=== PATIENT | male | born 1965 | race Asian ===

== ENCOUNTER → 2017-12-14 | Day surgery (SDC) | payer OTHER ==
[2017-09-23 11:31] VITALS: BMI 29.0
[2017-12-01 11:47] VITALS: BMI 29.0
[~2017-12-14] VITALS: Ht 188 cm; Wt 104.5 kg
[~2017-12-14] MED LIST: BUPR150T5 PO; CETI10TA84 PO; FENTANYL CITRATE INJ 50 MCG/1 ML 2 ML VIAL ONE; HYDR-3124 PO; HYDR-4079 PO; JUICE PLUS PO; LIDOCAINE HCL 2% 2 ML VIAL (20MG/ML) ONE; METH500T PO; METO25TA56 PO; MIDAZOLAM HCL 1 MG/ML 2ML VIAL ONE; MIRT15TA2 PO; MISCCAP80 PO; MULT-506 PO; PROPOFOL IV EMULSION 10 MG/ML 20 ML VIAL IV ONE; SODI325T9 PO; SODIUM CHLORIDE 0.9% 500ML 500 ML IV ONE; TRAV0.00 OPB; WLLSR/100 PO; ZNTT/150 PO
[2017-12-14 11:15] VITALS: TEMP 37.2
[2017-12-14 11:18] VITALS: Ht 188 cm; Wt 104.5 kg
--- NOTE | 2017-12-14 11:36 | Endo History and Physical ---
History & Physical Date of Service: Dec 14, 2017. Chief Complaint: screening Referring Physician: Dr. Ley History of Present Illness 52 yo male who presents for screening colonoscopy. Past Surgical History Hx Cardiac Surgery: No Hx Internal Defibrillator: No Hx Pacemaker: No Hx Abdominal Surgery: No Hx of Implantable Prosthesis: No Hx Post-Op Nausea and Vomiting: Yes (AFTER AN EGD IN THE PAST --> NO ISSUES SINCE) Hx Cancer Surgery: No Hx Thoracic Surgery: No Hx Orthopedic: Yes (RT TOENAIL REMOVAL) Hx Urinary Tract Surgery: No Family History Polyp, IBD Social History Smoking Status: Never Smoker Hx Substance Use: No Hx Alcohol Use: Yes (SOCIAL) Allergies Coded Allergies: Penicillins (Verified Allergy, Unknown, CONVULSIONS - HAPPENED A CHILD , 12/14/17) Gabapentin (Verified Adverse Reaction, Unknown, "LOOPINESS AND DIFFICULTY WITH RECALL", 12/14/17) Current Medications Reported Home Medications Medications Dose Route/Sig Max Daily Dose Days Date Category Dose Instructions Zyrtec (Cetirizine HCl) 10 Mg Tab 10 Mg PO HS 12/01/17 Reported Travatan Z (Travoprost) 0.004 % John 1 Drops OPB HS 09/23/17 Reported [Juice Plus] 1 Dose PO QAM 09/23/17 Reported Multivitamin (Multivitamins) Tab 1 Tab PO HS 09/23/17 Reported Probiotic (Probiotic Product) 1 Cap Cap 1 Cap PO HS 09/23/17 Reported [place] 10MG/325MG (Acetaminophen/Hydrocodone Bitart) Tab 1 Tab PO Q4H PRN 09/23/17 Reported PRN PAIN Wellbutrin Sr (Bupropion Hcl) 100 Mg Tabcr 100 Mg PO AFTERNOON 09/23/17 Reported Bupropion Hcl Xl (Bupropion Hcl) 150 Mg Tab 1 Tab PO QAM 09/23/17 Reported Robaxin (Methocarbamol) 500 Mg Tab 500 Mg PO HS 09/23/17 Reported Remeron Soltab (Mirtazapine) 15 Mg Soltab 15 Mg PO HS PRN 09/23/17 Reported IF DOES NOT TAKE HYDROXYZINE Atarax (Hydroxyzine Hcl) 25 Mg Tab 25 Mg PO HS 09/23/17 Reported Lopressor (Metoprolol Tartrate) 25 Mg Tab 0.5 Tab PO BID 09/23/17 Reported Sodium Bicarbonate (Sodium Bicarbonate (Antacid)) 325 Mg Tab 2 Tabs PO HS 09/23/17 Reported Zantac (Ranitidine HCl) 150 Mg Tab 150 Mg PO HS 09/23/17 Reported Vital Signs Weight (Kilograms): 104.55 Height (Feet): 6 Height (Inches): 2 Date Time Temp Pulse Resp B/P (MAP) Pulse Ox O2 Delivery O2 Flow Rate FiO2 12/14/17 11:15 37.2 76 16 141/79 (99) 98 Room Air Physical Exam General Appearance: WD/WN, no apparent distress Respiratory/Chest: Auscultation: breath sounds normal Cardiovascular: Heart Auscultation: RRR Abdomen: Bowel Sounds: normal Inspection & Palpation: soft, non-distended, no tenderness, guarding & rebound Assessment and Plan Assessment: 52 yo male who presents for screening colonoscopy. Plan: Proceed with colonoscopy.
--- NOTE | 2017-12-14 13:04 | GI REPORT ---
Procedure Date: 12/14/2017 12:31 PM Procedure: Colonoscopy Indications: Screening for colorectal malignant neoplasm Medicines: Monitored Anesthesia Care Complications: No immediate complications. Estimated Blood Loss: Estimated blood loss: none. Procedure: Pre-Anesthesia Assessment: - Prior to the procedure, a History and Physical was performed, and patient medications and allergies were reviewed. The patient's tolerance of previous anesthesia was also reviewed. The risks and benefits of the procedure and the sedation options and risks were discussed with the patient. All questions were answered, and informed consent was obtained. Prior Anticoagulants: The patient has taken no previous anticoagulant or antiplatelet agents. ASA Grade Assessment: III - A patient with severe systemic disease. After reviewing the risks and benefits, the patient was deemed in satisfactory condition to undergo the procedure. After I obtained informed consent, the scope was passed under direct vision. Throughout the procedure, the patient's blood pressure, pulse, and oxygen saturations were monitored continuously. The scope was introduced through the anus and advanced to the terminal ileum. The colonoscopy was performed without difficulty. The patient tolerated the procedure well. The quality of the bowel preparation was good. The terminal ileum, ileocecal valve, appendiceal orifice, and rectum were photographed. Findings: The perianal and digital rectal examinations were normal. A 10 mm polyp was found in the ascending colon. The polyp was sessile. The polyp was removed with a hot snare. Resection and retrieval were complete. To prevent bleeding after the polypectomy, one hemostatic clip was successfully placed (MR conditional). There was no bleeding at the end of the procedure. Non-bleeding internal hemorrhoids were found during retroflexion. The hemorrhoids were small. Impression: - One 10 mm polyp in the ascending colon, removed with a hot snare. Resected and retrieved. Clip (MR conditional) was placed. - Non-bleeding internal hemorrhoids. Recommendation: - Resume previous diet. - Continue present medications. - Repeat colonoscopy for surveillance based on pathology results. - Return to primary care physician as previously scheduled. Toribio Vu DO 12/14/2017 1:03:58 PM This report has been signed electronically. Note Initiated On: 12/14/2017 12:31 PM I attest to the content of the Intraoperative Record and orders documented therein, exceptions below
--- NOTE | 2017-12-14 13:08 | Discharge Instructions ---
Endoscopy Patient Instructions Date / Procedure(s) Performed Dec 14, 2017. Colonoscopy Allergy Information Coded Allergies: Penicillins (Verified Allergy, Unknown, CONVULSIONS - HAPPENED A CHILD , 12/14/17) Gabapentin (Verified Adverse Reaction, Unknown, "LOOPINESS AND DIFFICULTY WITH RECALL", 12/14/17) Discharge Date / Findings Dec 14, 2017. Colon polyp Internal hemorrhoids Medication Instructions OK to resume all medications today as prescribed Reported Home Medications Medications Dose Route/Sig Max Daily Dose Days Date Category Dose Instructions Zyrtec (Cetirizine HCl) 10 Mg Tab 10 Mg PO HS 12/01/17 Reported Travatan Z (Travoprost) 0.004 % John 1 Drops OPB HS 09/23/17 Reported [Juice Plus] 1 Dose PO QAM 09/23/17 Reported Multivitamin (Multivitamins) Tab 1 Tab PO HS 09/23/17 Reported Probiotic (Probiotic Product) 1 Cap Cap 1 Cap PO HS 09/23/17 Reported [place] 10MG/325MG (Acetaminophen/Hydrocodone Bitart) Tab 1 Tab PO Q4H PRN 09/23/17 Reported PRN PAIN Wellbutrin Sr (Bupropion Hcl) 100 Mg Tabcr 100 Mg PO AFTERNOON 09/23/17 Reported Bupropion Hcl Xl (Bupropion Hcl) 150 Mg Tab 1 Tab PO QAM 09/23/17 Reported Robaxin (Methocarbamol) 500 Mg Tab 500 Mg PO HS 09/23/17 Reported Remeron Soltab (Mirtazapine) 15 Mg Soltab 15 Mg PO HS PRN 09/23/17 Reported IF DOES NOT TAKE HYDROXYZINE Atarax (Hydroxyzine Hcl) 25 Mg Tab 25 Mg PO HS 09/23/17 Reported Lopressor (Metoprolol Tartrate) 25 Mg Tab 0.5 Tab PO BID 09/23/17 Reported Sodium Bicarbonate (Sodium Bicarbonate (Antacid)) 325 Mg Tab 2 Tabs PO HS 09/23/17 Reported Zantac (Ranitidine HCl) 150 Mg Tab 150 Mg PO HS 09/23/17 Reported Provider Instructions Activity Restrictions - No exercising or heavy lifting for 24 hours. - Do not drink alcohol the day of the procedure. - Do not drive a car or operate machinery until the day after the procedure. - Do not make any important decisions or sign important papers in 24 hours after the procedure. Following Day: - Return to full activity which may include returning to work/school. Diet Start your diet with liquids and light foods (jello, soup, juice, toast). Then eat your usual diet if not nauseated. Treatment For Common After Affects For mild abdominal pain, bloating, or excessive gas: - Rest - Eat lightly - Lie on right side Follow-Up Information Follow-up with Dr. Ley as scheduled Anesthesia Information What You Should Know You have had a procedure that required some medicine to reduce anxiety and discomfort. This treatment is called moderate sedation. After receiving the treatment, you may be sleepy, but you will be able to breathe on your own. The effects of the treatment may last for several hours. Follow these instructions along with Activity/Diet recommendations noted above: * Do NOT do anything where dizziness or clumsiness would be dangerous. * Rest quietly at home today, then you can be up and about tomorrow. * Have a responsible person stay with you the rest of today. * You may have had an I.V. today. If so, you may take the dressing off later today. Recommendations Call your doctor if: * Trouble breathing * Continuous vomiting for more than 24 hours * Temperature above 101 degrees * Severe abdominal pain or bloating * Pain not relieved by pain medicine ordered * There is increased drainage or redness from any incision * A large amount of rectal bleeding greater than 2-3 tablespoons. (If you had a polyp/s removed or have hemorrhoids, a small amount of blood - from the rectum is to be expected.) * You have any unanswered questions or concerns. IN THE EVENT OF A SERIOUS EMERGENCY, GO TO THE NEAREST EMERGENCY ROOM Your discharge instructions were prepared by provider Toribio Vu. Patient Instructions Signature Page Nasim Cary Patient (or Guardian) Signature/Date: I have read and understand the instructions given to me by my caregivers. Caregiver/RN/Doctor Signature/Date: The above-named patient and/or guardian has received patient instructions on this date. + Original Patient Signature Page (only) stays with chart. Please make copy for patient.
--- NOTE | 2017-12-14 13:27 | Anesthesiology Progress Note ---
Anesthesia Post Op Note Date & Time Dec 14, 2017 at 13:26 Vital Signs Pain Intensity: 0 Vital Signs Past 12 Hours Date Time Temp Pulse Resp B/P (MAP) Pulse Ox O2 Delivery O2 Flow Rate FiO2 12/14/17 13:19 62 16 145/93 (110) 97 Room Air 12/14/17 13:04 73 12 131/80 (97) 97 Room Air 12/14/17 11:15 37.2 76 16 141/79 (99) 98 Room Air Notes Mental Status: alert / awake / arousable, participated in evaluation Pt Amnestic to Procedure: Yes Nausea / Vomiting: adequately controlled Pain: adequately controlled Airway Patency, RR, SpO2: stable & adequate BP & HR: stable & adequate Hydration State: stable & adequate Anesthetic Complications: no major complications apparent
[2017-12-14 13:34] VITALS: BP 145/98; PULSE 62; O2SAT 97
== END | disposition home or self-care (01) ==
LOC: C.GI 10:26
PROVIDERS: ATTEND Internal Medicine
DX: Z12.11 Encounter for screening for malignant neoplasm of colon (principal); D12.2 Benign neoplasm of ascending colon; K21.9 Gastro-esophageal reflux disease without esophagitis; K44.9 Diaphragmatic hernia without obstruction or gangrene; K64.8 Other hemorrhoids; G47.33 Obstructive sleep apnea (adult) (pediatric); Z83.71 Family history of colonic polyps

== ENCOUNTER 2025-04-09 15:32 | Inpatient (IN) ==
[2025-04-09] MEDS: SODIUM CHLORIDE 0.9% 1,000 ML IV ONE (16:14)
[2025-04-09] MEDS: ONDANSETRON INJ 2 MG/ML 2 ML VIAL IV STA ×2 (16:15→19:58)
[2025-04-09 16:25] LABS: Basophils # (auto) 0.04 K/uL (0.00-0.20); Basophils % (auto) 0.3 %; Eosinophils # (auto) 2.45 K/uL (0.00-0.50); Eosinophils % (auto) 20.4 %; Hematocrit (blood only) 57.1 % (42.0-52.0); Immature Granulocytes # (auto) 0.06 K/uL (0.01-0.20); Immature Granulocytes % (auto) 0.5 %; Lymphocytes # (auto) 2.03 K/uL (1.20-3.40); Lymphocytes % (auto) 16.9 %; Monocytes # (auto) 0.73 K/uL (0.11-0.59); Monocytes % (auto) 6.1 %; Neutrophils # (auto) 6.68 K/uL (1.40-6.50); Neutrophils % (auto) 55.8 %; Platelet Count 351 K/uL (130-400); White Blood Count 11.99 K/ul (4.8-10.8)
[2025-04-09 16:28] LABS: Mean Corpuscular Hgb Conc 33.3 g/dL (32.0-36.0); RDW Coefficient of Variation 19.7 % (11.5-14.5); RDW Standard Deviation 41.9 fL (36.4-46.3); Red Blood Count 7.93 M/uL (4.70-6.10)
[2025-04-09 16:42] LABS: Albumin Level 3.8 gm/dl (3.4-5.0); BUN Creatinine Ratio 15.3 (10-20); Bilirubin Direct 0.1 mg/dl (0-0.2); Bilirubin,Total 0.7 mg/dl (0.2-1.0); Calcium 8.4 mg/dl (8.6-10.3); Creatinine Clr Calc Pharmacy 9.6 ml/min; Potassium 3.7 mmol/L (3.5-5.1)
--- NOTE | 2025-04-09 17:01 | Emergency Department Note ---
History of Present Illness General Chief complaint: Illness Stated complaint: E COLI RELAPSE, VOMITING AND DIARRHEA Time Seen by Provider: 04/09/25 15:45 History of Present Illness Maximum Pain Intensity: 10 Home Medications Medication Instructions Recorded Confirmed Type bupropion HCl 150 mg 24 hr tablet, 150 mg PO QAM ##0 09/23/17 04/02/25 History extended release hydrocodone 10 mg-acetaminophen 1 tab PO BID PRN Pain, 09/23/17 04/02/25 History 325 mg tablet Moderate-Severe ##0 methocarbamol 500 mg tablet 500 mg PO HS PRN Muscle Spasm ##0 09/23/17 04/02/25 History metoprolol tartrate 25 mg tablet 12.5 mg PO BID ##0 09/23/17 04/02/25 History ascorbic acid (vitamin C) 500 mg 1,000 mg PO DAILY 04/02/25 04/02/25 History tablet aspirin 81 mg tablet,delayed 81 mg PO DAILY 04/02/25 04/02/25 History release celecoxib 200 mg capsule (Celebrex) 200 mg PO BID PRN Pain 04/02/25 04/02/25 History coenzyme Q10 100 mg tablet 0 mg PO DAILY 04/02/25 04/02/25 History cyanocobalamin (vitamin B-12) 1,000 mcg PO DAILY 04/02/25 04/02/25 History 1,000 mcg tablet duloxetine 60 mg capsule,delayed 60 mg PO DAILY 04/02/25 04/02/25 History release empagliflozin 25 mg tablet 25 mg PO DAILY 04/02/25 04/02/25 History (Jardiance) ezetimibe 10 mg tablet (Zetia) 10 mg PO DAILY 04/02/25 04/02/25 History hydroxyzine HCl 50 mg tablet 100 mg PO BID PRN anxiety/sleep 04/02/25 04/02/25 History lidocaine 5 % topical patch 1 patch topical DAILY 04/02/25 04/02/25 History lysine 1,000 mg tablet 1,000 mg PO DAILY 04/02/25 04/02/25 History metformin 500 mg tablet,extended 500 mg PO DAILY 04/02/25 04/02/25 History release 24 hr methylphenidate HCl 27 mg 27 mg PO DAILY 04/02/25 04/02/25 History tablet,extended release 24 hr (Concerta) pantoprazole 20 mg tablet,delayed 20 mg PO BID 04/02/25 04/02/25 History release (Protonix) polyethylene glycol 3350 17 17 g PO BID PRN Constipation 04/02/25 04/02/25 History gram/dose oral powder (Miralax) pregabalin 300 mg capsule (Lyrica) 300 mg PO BID 04/02/25 04/02/25 History rosuvastatin 20 mg tablet (Crestor) 10 mg PO HS 04/02/25 04/02/25 History semaglutide 0.25 mg or 0.5 mg (2 0.5 mg subcut WK 04/02/25 04/02/25 History mg/3 mL) subcutaneous pen injector (Ozempic) sildenafil 100 mg tablet (Viagra) 50 mg PO UD PRN .ED 04/02/25 04/02/25 History testosterone 3 pump topical DAILY 04/02/25 04/02/25 History urea 20 % topical cream 1 applic topical DAILY PRN 04/02/25 04/02/25 History CALLUSING/FISSURING vitamins A,C,X-aihk-advupj 2,148 1 tab PO DAILY 04/02/25 04/02/25 History mcg-113 mg-45 mg-17.4 mg tablet (PreserVision AREDS) zinc gluconate 50 mg tablet 50 mg PO DAILY 04/02/25 04/02/25 History zonisamide 25 mg capsule 25 mg PO BID 04/02/25 04/02/25 History dicyclomine 20 mg tablet 20 mg PO QID #20 tabs 04/03/25 Rx ondansetron 4 mg disintegrating 4 mg PO Q6H PRN nausea and 04/03/25 Rx tablet vomiting #14 tabs sucralfate 100 mg/mL oral 10 ml PO QID #420 mL 04/03/25 Rx suspension (Carafate) Allergies Allergy/AdvReac Type Severity Reaction Status Date / Time Penicillins Allergy Unknown CONVULSIONS Verified 04/02/25 19:04 - HAPPENED A CHILD gabapentin AdvReac Unknown "LOOPINESS Verified 04/02/25 19:04 AND DIFFICULTY WITH RECALL" Past Med/Surg History Problem List Elevated hematocrit (Acute) Elevated hemoglobin (Acute) Dehydration (Acute) E. coli gastroenteritis (Acute) Idiopathic polyneuropathy Seizure-like activity Social History Smoking Status: Never smoker Feels Safe at Home: Yes Physical Exam 2 Vital Signs: Vital Signs - 24 hr 04/09/25 15:38 04/09/25 15:46 04/09/25 16:09 Temperature 37.0 C Temperature Source Temporal Artery Sc an Pulse Rate 90 104 H Respiratory Rate 16 Respiratory Effort / Characteristics Non-Labored Sponta neous Respiratory Depth Normal Respiratory Patter n Regular Blood Pressure 132/80 Blood Pressure [place] n 97 Pulse Oximetry 98 Oxygen Delivery Me thod Room Air Room Air Sepsis Recent Feve r Within 48 Hours No Sepsis New/Unexpla ined Change in Men kahlil Status No Sepsis Action Take n by Nursing No Action Required Course Administered Medications Discontinued Medications Sodium Chloride (Nss) 1,000 mls @ 999 mls/hr IV .Q1H1M ONE Stop: 04/09/25 16:46 Last Admin: 04/09/25 16:14 Dose: 999 mls/hr Documented By: SHAHEEN Ondansetron HCl (Ondansetron Inj 2 Mg/Ml 2 Ml Vial) 4 mg IV NOW STA Stop: 04/09/25 15:47 Last Admin: 04/09/25 16:15 Dose: 4 mg Documented By: SHAHEEN Medical Decision Making Laboratory Data 04/09/25 16:09 04/09/25 16:09 Lab Results 04/09/25 Range/Units 16:09 WBC 11.99 H (4.8-10.8) K/ul RBC 7.93 H (4.70-6.10) M/uL Hgb 19.0 H (14.0-18.0) g/dl Hct 57.1 H (42.0-52.0) % MCV 72.0 L (80.0-100.0) fL MCH 24.0 L (25.0-34.0) pg MCHC 33.3 (32.0-36.0) g/dL RDW Std Deviation 41.9 (36.4-46.3) fL RDW Coeff of Nicki 19.7 H (11.5-14.5) % Plt Count 351 (130-400) K/uL MPV 11.0 (9.4-12.4) fL Immature Gran % (Auto) 0.5 % Neut % (Auto) 55.8 % Lymph % (Auto) 16.9 % [place] % (Auto) 6.1 % Eos % (Auto) 20.4 % Baso % (Auto) 0.3 % Neut # (Auto) 6.68 H (1.40-6.50) K/uL Lymph # (Auto) 2.03 (1.20-3.40) K/uL [place] # (Auto) 0.73 H (0.11-0.59) K/uL Eos # (Auto) 2.45 H (0.00-0.50) K/uL Baso # (Auto) 0.04 (0.00-0.20) K/uL Immature Gran # (Auto) 0.06 (0.01-0.20) K/uL Sodium 142 (136-145) mmol/L Potassium 3.7 (3.5-5.1) mmol/L Chloride 108 H (98-107) mmol/L Carbon Dioxide 23 (21-32) mmol/L Anion Gap 11 (3-11) BUN 15 (6-23) mg/dl Creatinine 0.98 (0.6-1.4) mg/dl Est Cr Clr Drug Dosing 9.6 ml/min eGFR 88.83 BUN/Creatinine Ratio 15.3 (10-20) Glucose 154 H (70-99(Fasting)) mg/dl Calcium 8.4 L (8.6-10.3) mg/dl Total Bilirubin 0.7 (0.2-1.0) mg/dl Direct Bilirubin 0.1 (0-0.2) mg/dl AST 21 (13-39) U/L ALT 20 (7-52) U/L Alkaline Phosphatase 64 (34-104) U/L Total Protein 7.0 (6.0-8.3) gm/dl Albumin 3.8 (3.4-5.0) gm/dl Lipase 21 (11-82) U/L Discharge Plan Visit Data Chief Complaint: Illness Stated Complaint: E COLI RELAPSE, VOMITING AND DIARRHEA ED Provider: Ángel Perez Forms Stand Alone Forms: [facility] Prescriptions Prescriptions: No Action methocarbamol 500 mg Tablet 500 mg PO HS PRN (Reason: Muscle Spasm) Qty: 0 hydrocodone-acetaminophen [[place]] 10-325 mg Tablet 1 tab PO BID PRN (Reason: Pain, Moderate-Severe) Qty: 0 Patient Comments: PRN PAIN bupropion HCl 150 mg Tablet Extended Release 24 Hr 150 mg PO QAM Qty: 0 metoprolol tartrate 25 mg Tablet 12.5 mg PO BID Qty: 0 celecoxib [Celebrex] 200 mg Capsule 200 mg PO BID PRN (Reason: Pain) urea 20 % Cream 1 applic TOPICAL DAILY PRN (Reason: CALLUSING/FISSURING) cyanocobalamin (vitamin B-12) 1,000 mcg Tablet 1,000 mcg PO DAILY lysine [L-Lysine] 1,000 mg Tablet 1,000 mg PO DAILY hydroxyzine HCl [Atarax] 50 mg Tablet 100 mg PO BID PRN (Reason: anxiety/sleep) aspirin 81 mg Tablet,Delayed Release (Dr/Ec) 81 mg PO DAILY sildenafil [Viagra] 100 mg Tablet 50 mg PO UD PRN (Reason: .ED) Rx Instructions: administer 30 minutes to 4 hours before activity pantoprazole [Protonix] 20 mg Tablet,Delayed Release (Dr/Ec) 20 mg PO BID ascorbic acid (vitamin C) 500 mg Tablet 1,000 mg PO DAILY lidocaine 5 % Adhesive Patch,Medicated 1 patch TOPICAL DAILY Rx Instructions: leave on most painful area for up to 12 hrs zinc gluconate 50 mg Tablet 50 mg PO DAILY polyethylene glycol 3350 [Miralax] 17 gram/dose Powder 17 g PO BID PRN (Reason: Constipation) metformin 500 mg Tablet Extended Release 24 Hr 500 mg PO DAILY methylphenidate HCl [Concerta] 27 mg Tablet Extended Release 24hr 27 mg PO DAILY ezetimibe [Zetia] 10 mg Tablet 10 mg PO DAILY rosuvastatin [Crestor] 20 mg Tablet 10 mg PO HS zonisamide 25 mg Capsule 25 mg PO BID duloxetine 60 mg Capsule,Delayed Release(Dr/Ec) 60 mg PO DAILY pregabalin [Lyrica] 300 mg Capsule 300 mg PO BID PreserVision AREDS 2,148 mcg-113 mg-45 mg-17.4mg Tablet 1 tab PO DAILY testosterone 20.25 mg/1.25 gram (1.62 %) Gel In Metered-Dose Pump 3 pump TOPICAL DAILY Rx Instructions: apply 1 pump amount over max area of EACH upper arm and shoulder coenzyme Q10 100 mg Tablet 0 mg PO DAILY Rx Instructions: strength not listed [facility] Jardiance 25 mg Tablet 25 mg PO DAILY Ozempic 0.25 mg or 0.5 mg (2 mg/3 mL) Pen Injector 0.5 mg SUBCUT WK sucralfate [Carafate] 100 mg/mL suspension 10 ml PO QID Qty: 420 0RF Rx Instructions: swish in mouth and swallow; use after food/drink: May substitute tablets as a slurry. dicyclomine 20 mg tablet 20 mg PO QID Qty: 20 0RF ondansetron 4 mg tablet,disintegrating 4 mg PO Q6H PRN (Reason: nausea and vomiting) Qty: 14 0RF Referrals Referrals: Clifford Avila MD [Primary Care Provider] -
--- NOTE | 2025-04-09 17:04 | Emergency Department Note ---
History of Present Illness General Chief complaint: Illness Stated complaint: E COLI RELAPSE, VOMITING AND DIARRHEA Time Seen by Provider: 04/09/25 15:45 History of Present Illness Provider complaint: Diarrhea Maximum Pain Intensity: 10 59-year-old male presents emergency department for diarrhea. Patient reports he was recently seen in the emergency department a week ago for diarrhea after eating a meatball sub-. Patient reports he was diagnosed with an E. coli infection. Patient states he was started on azithromycin after his ER visit. Patient reports his symptoms got better on Wednesday. He reports he finished the antibiotics 2 days ago. He reports Wednesday started having diarrhea again. Patient also reports nausea and vomiting. He reports no fevers but does report chills. Patient reports bloody stools. Patient reports blood streaking in his vomit also. Home Medications Medication Instructions Recorded Confirmed Type bupropion HCl 150 mg 24 hr tablet, 150 mg PO QAM ##0 09/23/17 04/09/25 History extended release hydrocodone 10 mg-acetaminophen 1 tab PO BID PRN Pain, 09/23/17 04/09/25 History 325 mg tablet Moderate-Severe ##0 methocarbamol 500 mg tablet 500 mg PO HS PRN Muscle Spasm ##0 09/23/17 04/09/25 History metoprolol tartrate 25 mg tablet 12.5 mg PO BID ##0 09/23/17 04/09/25 History ascorbic acid (vitamin C) 500 mg 1,000 mg PO DAILY 04/02/25 04/09/25 History tablet aspirin 81 mg tablet,delayed 81 mg PO DAILY 04/02/25 04/09/25 History release celecoxib 200 mg capsule (Celebrex) 200 mg PO BID PRN Pain 04/02/25 04/09/25 History coenzyme Q10 100 mg tablet 0 mg PO DAILY 04/02/25 04/09/25 History cyanocobalamin (vitamin B-12) 1,000 mcg PO DAILY 04/02/25 04/09/25 History 1,000 mcg tablet duloxetine 60 mg capsule,delayed 60 mg PO DAILY 04/02/25 04/09/25 History release empagliflozin 25 mg tablet 25 mg PO DAILY 04/02/25 04/09/25 History (Jardiance) ezetimibe 10 mg tablet (Zetia) 10 mg PO DAILY 04/02/25 04/09/25 History hydroxyzine HCl 50 mg tablet 100 mg PO BID PRN anxiety/sleep 04/02/25 04/09/25 History lidocaine 5 % topical patch 1 patch topical DAILY 04/02/25 04/09/25 History lysine 1,000 mg tablet 1,000 mg PO DAILY 04/02/25 04/09/25 History metformin 500 mg tablet,extended 500 mg PO DAILY 04/02/25 04/09/25 History release 24 hr methylphenidate HCl 27 mg 27 mg PO DAILY 04/02/25 04/09/25 History tablet,extended release 24 hr (Concerta) pantoprazole 20 mg tablet,delayed 20 mg PO BID 04/02/25 04/09/25 History release (Protonix) polyethylene glycol 3350 17 17 g PO BID PRN Constipation 04/02/25 04/09/25 History gram/dose oral powder (Miralax) pregabalin 300 mg capsule (Lyrica) 300 mg PO BID 04/02/25 04/09/25 History rosuvastatin 20 mg tablet (Crestor) 10 mg PO HS 04/02/25 04/09/25 History semaglutide 0.25 mg or 0.5 mg (2 0.5 mg subcut WK 04/02/25 04/09/25 History mg/3 mL) subcutaneous pen injector (Ozempic) sildenafil 100 mg tablet (Viagra) 50 mg PO UD PRN .ED 04/02/25 04/09/25 History testosterone 3 pump topical DAILY 04/02/25 04/09/25 History urea 20 % topical cream 1 applic topical DAILY PRN 04/02/25 04/09/25 History CALLUSING/FISSURING vitamins A,C,Q-hcek-okjvvp 2,148 1 tab PO DAILY 04/02/25 04/09/25 History mcg-113 mg-45 mg-17.4 mg tablet (PreserVision AREDS) zinc gluconate 50 mg tablet 50 mg PO DAILY 04/02/25 04/09/25 History zonisamide 25 mg capsule 25 mg PO BID 04/02/25 04/09/25 History dicyclomine 20 mg tablet 20 mg PO QID #20 tabs 04/03/25 04/09/25 Rx ondansetron 4 mg disintegrating 4 mg PO Q6H PRN nausea and 05/06/25 05/12/25 Rx tablet vomiting #14 tabs sucralfate 100 mg/mL oral 10 ml PO QID #420 mL 04/03/25 04/09/25 Rx suspension (Carafate) Allergies Allergy/AdvReac Type Severity Reaction Status Date / Time Penicillins Allergy Unknown CONVULSIONS Verified 04/02/25 19:04 - HAPPENED A CHILD gabapentin AdvReac Unknown "LOOPINESS Verified 04/02/25 19:04 AND DIFFICULTY WITH RECALL" Past Med/Surg History Problem List (Updated 04/09/25 @ 20:16 by Jacob Caballero DO) Depression Hematochezia GERD (gastroesophageal reflux disease) Hyperlipidemia associated with type 2 diabetes mellitus Diabetes 1.5, managed as type 2 Nausea & vomiting Elevated hemoglobin (Acute) Dehydration (Acute) Seizure-like activity Medical History (Updated 04/09/25 @ 20:16 by Jacob Caballero DO) Elevated hematocrit E. coli gastroenteritis Idiopathic polyneuropathy Social History Smoking Status: Never smoker Feels Safe at Home: Yes Physical Exam Vital Signs Vital Signs - 24 hr 04/09/25 15:38 04/09/25 15:46 04/09/25 16:09 Temperature 37.0 C Temperature Source Temporal Artery Scan Pulse Rate 90 104 H Pulse Rate [Apical] Respiratory Rate 16 Respiratory Effort / Characteristics Non-Labored Spontaneous Respiratory Depth Normal Respiratory Pattern Regular Blood Pressure 132/80 Blood Pressure [Right Arm] Blood Pressure Mean 97 Blood Pressure Mean [Right Arm] Pulse Oximetry 98 Oxygen Delivery Method Room Air Room Air Sepsis Recent Fever Within 48 Hours No Sepsis New/Unexplained Change in Mental Status No Sepsis Action Taken by Nursing No Action Required 04/09/25 18:00 04/09/25 19:43 04/09/25 20:10 Temperature Temperature Source Pulse Rate 106 H Pulse Rate [Apical] 104 H 122 H Respiratory Rate 18 23 Respiratory Effort / Characteristics Respiratory Depth Respiratory Pattern Blood Pressure Blood Pressure [Right Arm] 127/96 136/117 H Blood Pressure Mean Blood Pressure Mean [Right Arm] 106 123 Pulse Oximetry 97 96 Oxygen Delivery Method Room Air Room Air Sepsis Recent Fever Within 48 Hours Sepsis New/Unexplained Change in Mental Status Sepsis Action Taken by Nursing Physical Exam GENERAL: oriented to person, place, and time. appears well-developed and well- nourished. She does not appear distressed. HENT: Exam performed. -Head: Normocephalic and atraumatic. -Right Ear: External ear normal. No mastoid erythema -Left Ear: External ear normal. No mastoid erythema -Mouth/Throat: The oropharynx is clear and moist. No trismus in the jaw. No dental abscesses or uvula swelling. No oropharyngeal exudate or tonsillar abscesses. EYES: Conjunctivae and EOM are normal.Right eye exhibits no discharge. Left eye exhibits no discharge. No scleral icterus. NECK: Normal range of motion. Neck supple. No JVD present. No tracheal deviation and normal range of motion present. CV: Tachycardic rate, regular rhythm, normal heart sounds and intact distal pulses. There is no peripheral edema. Palpable radial pulses bue. PULM/CHEST: Effort normal and breath sounds normal. No respiratory distress. No stridor. no wheezes.no rales. -Chest Wall: no tenderness to palpation ABD: The abdomen is soft. Bowel sounds are normal. no distension. No mass is present. There is diffuse tenderness to palpation. There is no rebound, no guarding. MUSC/SKEL: Normal range of motion. There is no peripheral edema, tenderness or deformity. NEURO: Motor and sensation grossly intact. SKIN: Skin is warm and dry. not diaphoretic. PSYCH: normal mood and affect. Behavior is normal. Judgment and thought content normal. Course Course 154: The patient was evaluated in room A2. A complete history and physical exam was performed Cardiac monitoring: An order was placed for continuous cardiac monitoring. The monitor shows a rate of 100 with sinus rhythm interpreted by me 2000: Patient remains tachycardic. Labs are unremarkable. CT imaging shows several fluid-filled bowel loops compatible with enteritis/diarrheal illness. On reassessment patient still having nausea and vomiting and diarrhea. Stool cultures are pending. Patient will be admitted and continued on Protonix drip given he was vomiting blood and having bloody stools. [facility] Patient's stool culture and C. difficile are negative. Administered Medications Pantoprazole Sodium 40 mg/ (Dextrose) 100 mls @ 20 mls/hr IV Q5H KEISHA Stop: 05/09/25 17:14 Last Admin: 04/09/25 18:13 Dose: 8 mg/hr, 20 mls/hr Documented By: SHAHEEN Discontinued Medications Sodium Chloride (Nss) 1,000 mls @ 999 mls/hr IV .Q1H1M ONE Stop: 04/09/25 16:46 Last Infusion: 04/09/25 17:18 Dose: Infused Documented By: Admin: 04/09/25 16:14 Dose: 999 mls/hr Documented By: SHAHEEN Pantoprazole Sodium 80 mg/ (Dextrose) 120 mls @ 480 mls/hr IV NOW ONE Stop: 04/09/25 17:13 Last Infusion: 04/09/25 17:42 Dose: Infused Documented By: Admin: 04/09/25 17:27 Dose: 480 mls/hr Documented By: SHAHEEN Ioversol (Optiray 320 100ml) 93 ml IV ONCE ONE Stop: 04/09/25 17:51 Last Admin: 04/09/25 17:51 Dose: 93 ml Documented By: OMAR Morphine Sulfate (Morphine Sulfate 4 Mg/Ml 1 Ml Carp\\Vial) 4 mg IV NOW STA Stop: 04/09/25 19:34 Last Admin: 04/09/25 19:43 Dose: 4 mg Documented By: SHAHEEN Ondansetron HCl (Ondansetron Inj 2 Mg/Ml 2 Ml Vial) 4 mg IV NOW STA Stop: 04/09/25 15:47 Last Admin: 04/09/25 16:15 Dose: 4 mg Documented By: SHAHEEN Ondansetron HCl (Ondansetron Inj 2 Mg/Ml 2 Ml Vial) 4 mg IV NOW STA Stop: 04/09/25 19:54 Last Admin: 04/09/25 19:58 Dose: 4 mg Documented By: SHAHEEN Pantoprazole Sodium (Pantoprazole Bolus/Drip) 1 each IV NOW STA Stop: 04/09/25 17:00 Last Admin: 04/09/25 17:29 Dose: 1 each Documented By: SHAHEEN Medical Decision Making Medical Records Attestation: I reviewed the patient's medical records. External medical records reviewed. Patient was seen in the emergency department on April 02, 2025 in the emergency department. At that time he had a CT of his chest abdomen and pelvis which was essentially unremarkable. Patient's labs showed a white blood cell count of 13.16 hemoglobin 19.3 BUN/creatinine are unremarkable. Patient's stool culture detected EHEC. Patient was discharged with prescription azithromycin. Laboratory Data Attestation: I reviewed the patient's lab results. 04/09/25 16:09 04/09/25 16:09 Lab Results 04/09/25 04/09/25 04/09/25 Range/Units 16:09 17:25 19:07 WBC 11.99 H (4.8-10.8) K/ul RBC 7.93 H (4.70-6.10) M/uL Hgb 19.0 H (14.0-18.0) g/dl Hct 57.1 H (42.0-52.0) % MCV 72.0 L (80.0-100.0) fL MCH 24.0 L (25.0-34.0) pg MCHC 33.3 (32.0-36.0) g/dL RDW Std Deviation 41.9 (36.4-46.3) fL RDW Coeff of Nicki 19.7 H (11.5-14.5) % Plt Count 351 (130-400) K/uL MPV 11.0 (9.4-12.4) fL Immature Gran % (Auto) 0.5 % Neut % (Auto) 55.8 % Lymph % (Auto) 16.9 % Parmer % (Auto) 6.1 % Eos % (Auto) 20.4 % Baso % (Auto) 0.3 % Neut # (Auto) 6.68 H (1.40-6.50) K/uL Lymph # (Auto) 2.03 (1.20-3.40) K/uL [place]mer # (Auto) 0.73 H (0.11-0.59) K/uL Eos # (Auto) 2.45 H (0.00-0.50) K/uL Baso # (Auto) 0.04 (0.00-0.20) K/uL Immature Gran # (Auto) 0.06 (0.01-0.20) K/uL Sodium 142 (136-145) mmol/L Potassium 3.7 (3.5-5.1) mmol/L Chloride 108 H (98-107) mmol/L Carbon Dioxide 23 (21-32) mmol/L Anion Gap 11 (3-11) BUN 15 (6-23) mg/dl Creatinine 0.98 (0.6-1.4) mg/dl Est Cr Clr Drug Dosing 9.6 ml/min eGFR 88.83 BUN/Creatinine Ratio 15.3 (10-20) Glucose 154 H (70-99(Fasting)) mg/dl Calcium 8.4 L (8.6-10.3) mg/dl Total Bilirubin 0.7 (0.2-1.0) mg/dl Direct Bilirubin 0.1 (0-0.2) mg/dl AST 21 (13-39) U/L ALT 20 (7-52) U/L Alkaline Phosphatase 64 (34-104) U/L Total Protein 7.0 (6.0-8.3) gm/dl Albumin 3.8 (3.4-5.0) gm/dl Lipase 21 (11-82) U/L Urine Color Yellow Urine Appearance Clear (Clear) Urine pH 6.5 (4.5-7.5) Ur Specific [place] 1.039 H (1.000-1.030) Urine Protein Trace H (Negative) Urine Glucose (UA) 3+ H (Negative) Urine Ketones 3+ H (Negative) Urine Blood Negative (Negative) Urine Nitrite Negative (Negative) Urine Bilirubin Negative (Negative) Urine Urobilinogen Negative (Negative) Ur Leukocyte Esterase Negative (Negative) Urine WBC (Auto) 0-5 (0-5) /hpf Urine RBC (Auto) 0-2 (0-2) /hpf U Hyaline Cast (Auto) 0-2 (0-2) /lpf U Epithel Cells (Auto) 0-2 (0-2) /hpf Urine Bacteria (Auto) None Seen (None Seen) Stool Occult Bld Scrn (Negative) Stl C. cayetanensis PCR Not Detected (NotDetected) Stool Rotavirus A PCR Not Detected (NotDetected) Stl Adenov F 40/41 PCR Not Detected (NotDetected) Stool Astrovirus (PCR) Not Detected (NotDetected) Stool Campylobacter PCR Not Detected (NotDetected) Stl C. diff Tox B Gene Negative Cdiff Gene (Neg) Stool Cryptosporidium PCR Not Detected (NotDetected) Stl E.coli Shiga Tox PCR Not Detected (NotDetected) Stl Enterotoxigenic E PCR Not Detected (NotDetected) Stool EPEC (PCR) Not Detected (NotDetected) Stool EAEC (PCR) Not Detected (NotDetected) Stl E. histolytica PCR Not Detected (NotDetected) Stool Giardia Lamblia PCR Not Detected (NotDetected) Stool Salmonella PCR Not Detected (NotDetected) Stool Sapovirus (PCR) Not Detected (NotDetected) Stl P. shigelloides PCR Not Detected (NotDetected) Stl Shigella/EIEC PCR Not Detected (NotDetected) St Y.enterocolitica PCR Not Detected (NotDetected) Stool Vibrio (PCR) Not Detected (NotDetected) Stl Vibrio cholerae PCR Not Detected (NotDetected) Stl Norovirus GI/GII PCR Not Detected (NotDetected) 04/09/25 Range/Units 19:30 WBC (4.8-10.8) K/ul RBC (4.70-6.10) M/uL Hgb (14.0-18.0) g/dl Hct (42.0-52.0) % MCV (80.0-100.0) fL MCH (25.0-34.0) pg MCHC (32.0-36.0) g/dL RDW Std Deviation (36.4-46.3) fL RDW Coeff of Nicki (11.5-14.5) % Plt Count (130-400) K/uL MPV (9.4-12.4) fL Immature Gran % (Auto) % Neut % (Auto) % Lymph % (Auto) % Parmer % (Auto) % Eos % (Auto) % Baso % (Auto) % Neut # (Auto) (1.40-6.50) K/uL Lymph # (Auto) (1.20-3.40) K/uL Parmer # (Auto) (0.11-0.59) K/uL Eos # (Auto) (0.00-0.50) K/uL Baso # (Auto) (0.00-0.20) K/uL Immature Gran # (Auto) (0.01-0.20) K/uL Sodium (136-145) mmol/L Potassium (3.5-5.1) mmol/L Chloride (98-107) mmol/L Carbon Dioxide (21-32) mmol/L Anion Gap (3-11) BUN (6-23) mg/dl Creatinine (0.6-1.4) mg/dl Est Cr Clr Drug Dosing ml/min eGFR BUN/Creatinine Ratio (10-20) Glucose (70-99(Fasting)) mg/dl Calcium (8.6-10.3) mg/dl Total Bilirubin (0.2-1.0) mg/dl Direct Bilirubin (0-0.2) mg/dl AST (13-39) U/L ALT (7-52) U/L Alkaline Phosphatase (34-104) U/L Total Protein (6.0-8.3) gm/dl Albumin (3.4-5.0) gm/dl Lipase (11-82) U/L Urine Color Urine Appearance (Clear) Urine pH (4.5-7.5) Ur Specific [place] (1.000-1.030) Urine Protein (Negative) Urine Glucose (UA) (Negative) Urine Ketones (Negative) Urine Blood (Negative) Urine Nitrite (Negative) Urine Bilirubin (Negative) Urine Urobilinogen (Negative) Ur Leukocyte Esterase (Negative) Urine WBC (Auto) (0-5) /hpf Urine RBC (Auto) (0-2) /hpf U Hyaline Cast (Auto) (0-2) /lpf U Epithel Cells (Auto) (0-2) /hpf Urine Bacteria (Auto) (None Seen) Stool Occult Bld Scrn Positive A (Negative) Stl C. cayetanensis PCR (NotDetected) Stool Rotavirus A PCR (NotDetected) Stl Adenov F 40/41 PCR (NotDetected) Stool Astrovirus (PCR) (NotDetected) Stool Campylobacter PCR (NotDetected) Stl C. diff Tox B Gene (Neg) Stool Cryptosporidium PCR (NotDetected) Stl E.coli Shiga Tox PCR (NotDetected) Stl Enterotoxigenic E PCR (NotDetected) Stool EPEC (PCR) (NotDetected) Stool EAEC (PCR) (NotDetected) Stl E. histolytica PCR (NotDetected) Stool Giardia Lamblia PCR (NotDetected) Stool Salmonella PCR (NotDetected) Stool Sapovirus (PCR) (NotDetected) Stl P. shigelloides PCR (NotDetected) Stl Shigella/EIEC PCR (NotDetected) St Y.enterocolitica PCR (NotDetected) Stool Vibrio (PCR) (NotDetected) Stl Vibrio cholerae PCR (NotDetected) Stl Norovirus GI/GII PCR (NotDetected) Imaging Data Radiologist's Impression: Abdomen/Pelvis CT 04/09/25 16:00 EXAMINATION: CT of the abdomen and pelvis performed after the administration of IV contrast TECHNIQUE: Helical CT images from the lung bases through the symphysis pubis were obtained with contrast. Coronal and sagittal reformatted images were generated at a workstation for further assessment. Dose reduction techniques were achieved by using automatic exposure control and/or adjustment of mA and/or kV according to patient size and/or use of iterative reconstruction technique. COMPARISON: April 02, 2025 HISTORY: Abdominal pain FINDINGS: Lower chest: No consolidation. No pleural effusion or pneumothorax. Liver: No suspicious liver lesions. Portal veins appear patent. Gallbladder: No gallstones. No evidence of acute cholecystitis. Spleen: Normal size. Pancreas: No suspicious pancreatic lesions. The pancreatic duct is not dilated. Adrenal glands: No adrenal nodules. Kidneys: No hydronephrosis or obstructing renal stones. Focal scarring at the mid left kidney. Bladder / Pelvic organs: Unremarkable. Bowel: No bowel obstruction. No abnormal bowel wall thickening. The appendix is unremarkable. Extensive fluid filling throughout the nondilated large bowel. Several nondilated loops of small bowel distally are fluid-filled. Lymph nodes: No retroperitoneal, mesenteric, or pelvic lymphadenopathy. Peritoneum / Retroperitoneum: No free fluid or air within the abdomen. Vessels: No infrarenal aortic aneurysm. Bones and soft tissues: No suspicious lesion in the bones. IMPRESSION: Several fluid-filled loops of small bowel, and fluid filling of the large bowel compatible with enteritis and diarrheal illness. No obstruction. Electronically signed by Adalid Lehman 04-09-2025 6:48 PM ECG Data Attestation: I personally reviewed and interpreted this ECG as follows: Rate (beats per minute): 109 Rhythm: + sinus tachycardia ECG Intervals/blocks: + Normal QRS, + Normal ME and + Normal QT-c ECG ST segments: + Normal ST segments MDM Narrative 1545: The patient was evaluated in room A2. A complete history and physical exam was performed Cardiac monitoring: An order was placed for continuous cardiac monitoring. The monitor shows a rate of 100 with sinus rhythm interpreted by me 2000: Patient remains tachycardic. Labs are unremarkable. CT imaging shows several fluid-filled bowel loops compatible with enteritis/diarrheal illness. On reassessment patient still having nausea and vomiting and diarrhea. Stool cultures are pending. Patient will be admitted and continued on Protonix drip given he was vomiting blood and having bloody stools. [facility]: Patient's stool culture and C. difficile are negative. Impression & Plan GI bleed, Nausea vomiting and diarrhea Discharge Plan Visit Data Chief Complaint: Illness Stated Complaint: E COLI RELAPSE, VOMITING AND DIARRHEA ED Provider: Ángel Perez Discharge Problem: GI bleed, Nausea vomiting and diarrhea Patient Disposition: Admitted As Inpatient Condition: Fair Forms Stand Alone Forms: [facility] Prescriptions Prescriptions: No Action methocarbamol 500 mg Tablet 500 mg PO HS PRN (Reason: Muscle Spasm) Qty: 0 hydrocodone-acetaminophen [[place]] 10-325 mg Tablet 1 tab PO BID PRN (Reason: Pain, Moderate-Severe) Qty: 0 Patient Comments: PRN PAIN bupropion HCl 150 mg Tablet Extended Release 24 Hr 150 mg PO QAM Qty: 0 metoprolol tartrate 25 mg Tablet 12.5 mg PO BID Qty: 0 celecoxib [Celebrex] 200 mg Capsule 200 mg PO BID PRN (Reason: Pain) urea 20 % Cream 1 applic TOPICAL DAILY PRN (Reason: CALLUSING/FISSURING) cyanocobalamin (vitamin B-12) 1,000 mcg Tablet 1,000 mcg PO DAILY lysine [L-Lysine] 1,000 mg Tablet 1,000 mg PO DAILY hydroxyzine HCl [Atarax] 50 mg Tablet 100 mg PO BID PRN (Reason: anxiety/sleep) aspirin 81 mg Tablet,Delayed Release (Dr/Ec) 81 mg PO DAILY sildenafil [Viagra] 100 mg Tablet 50 mg PO UD PRN (Reason: .ED) Rx Instructions: administer 30 minutes to 4 hours before activity pantoprazole [Protonix] 20 mg Tablet,Delayed Release (Dr/Ec) 20 mg PO BID ascorbic acid (vitamin C) 500 mg Tablet 1,000 mg PO DAILY lidocaine 5 % Adhesive Patch,Medicated 1 patch TOPICAL DAILY Rx Instructions: leave on most painful area for up to 12 hrs zinc gluconate 50 mg Tablet 50 mg PO DAILY polyethylene glycol 3350 [Miralax] 17 gram/dose Powder 17 g PO BID PRN (Reason: Constipation) metformin 500 mg Tablet Extended Release 24 Hr 500 mg PO DAILY methylphenidate HCl [Concerta] 27 mg Tablet Extended Release 24hr 27 mg PO DAILY ezetimibe [Zetia] 10 mg Tablet 10 mg PO DAILY rosuvastatin [Crestor] 20 mg Tablet 10 mg PO HS zonisamide 25 mg Capsule 25 mg PO BID duloxetine 60 mg Capsule,Delayed Release(Dr/Ec) 60 mg PO DAILY pregabalin [Lyrica] 300 mg Capsule 300 mg PO BID PreserVision AREDS 2,148 mcg-113 mg-45 mg-17.4mg Tablet 1 tab PO DAILY testosterone 20.25 mg/1.25 gram (1.62 %) Gel In Metered-Dose Pump 3 pump TOPICAL DAILY Rx Instructions: apply 1 pump amount over max area of EACH upper arm and shoulder coenzyme Q10 100 mg Tablet 0 mg PO DAILY Rx Instructions: strength not listed [facility] Jardiance 25 mg Tablet 25 mg PO DAILY Ozempic 0.25 mg or 0.5 mg (2 mg/3 mL) Pen Injector 0.5 mg SUBCUT WK sucralfate [Carafate] 100 mg/mL suspension 10 ml PO QID Qty: 420 0RF Rx Instructions: swish in mouth and swallow; use after food/drink: May substitute tablets as a slurry. dicyclomine 20 mg tablet 20 mg PO QID Qty: 20 0RF ondansetron 4 mg tablet,disintegrating 4 mg PO Q6H PRN (Reason: nausea and vomiting) Qty: 14 0RF Referrals Referrals: Clfiford Avila MD [Primary Care Provider] -
[2025-04-09] MEDS: PANTOprazole 80 MG in DEXTROSE 5% 100 ML IV ONE (17:27)
[2025-04-09] MEDS: PANTOPRAZOLE BOLUS/DRIP IV STA (17:29)
[2025-04-09 17:39] LABS: Appearance Urine Clear (Clear); Bacteria Urine Automated None Seen (None Seen); Bilirubin Urine Negative (Negative); Blood Urine Negative (Negative); Cast Urine Automated 0-2 /lpf (0-2); Color Urine Yellow; Epithelial Cell Urine Auto 0-2 /hpf (0-2); Glucose Urine UA 3+ (Negative); Ketones Urine 3+ (Negative); Leukocyte Esterase Urine Negative (Negative); Nitrite Urine Negative (Negative); Protein Urine Trace (Negative); RBC Urine Automated 0-2 /hpf (0-2); Specific Gravity Urine 1.039 (1.000-1.030); Urobilinogen Urine Negative (Negative); WBC Urine Automated 0-5 /hpf (0-5); pH Urine 6.5 (4.5-7.5)
[2025-04-09] MEDS: OPTIRAY 320 100ml IV ONE (17:51)
[2025-04-09] MEDS: PANTOprazole 40 MG in DEXTROSE 5% MINI-B 100 ML IV SCH (18:13)
--- NOTE | 2025-04-09 18:48 | CT Scan Report ---
EXAMINATION: CT of the abdomen and pelvis performed after the administration of IV contrast TECHNIQUE: Helical CT images from the lung bases through the symphysis pubis were obtained with contrast. Coronal and sagittal reformatted images were generated at a workstation for further assessment. Dose reduction techniques were achieved by using automatic exposure control and/or adjustment of mA and/or kV according to patient size and/or use of iterative reconstruction technique. COMPARISON: April 02, 2025 HISTORY: Abdominal pain FINDINGS: Lower chest: No consolidation. No pleural effusion or pneumothorax. Liver: No suspicious liver lesions. Portal veins appear patent. Gallbladder: No gallstones. No evidence of acute cholecystitis. Spleen: Normal size. Pancreas: No suspicious pancreatic lesions. The pancreatic duct is not dilated. Adrenal glands: No adrenal nodules. Kidneys: No hydronephrosis or obstructing renal stones. Focal scarring at the mid left kidney. Bladder / Pelvic organs: Unremarkable. Bowel: No bowel obstruction. No abnormal bowel wall thickening. The appendix is unremarkable. Extensive fluid filling throughout the nondilated large bowel. Several nondilated loops of small bowel distally are fluid-filled. Lymph nodes: No retroperitoneal, mesenteric, or pelvic lymphadenopathy. Peritoneum / Retroperitoneum: No free fluid or air within the abdomen. Vessels: No infrarenal aortic aneurysm. Bones and soft tissues: No suspicious lesion in the bones. IMPRESSION: Several fluid-filled loops of small bowel, and fluid filling of the large bowel compatible with enteritis and diarrheal illness. No obstruction. Electronically signed by Adalid Lehman 04-09-2025 6:48 PM
[2025-04-09] MEDS: MoRPHine SULFATE 4 MG/ML 1 ML CARP\\VIAL IV STA (19:43)
--- NOTE | 2025-04-09 20:07 | History & Physical Report ---
Date of Service April 09, 2025 Assessment & Plan (1) Nausea & vomiting: Plan: IV fluids Zofran as needed Compazine if Zofran ineffective Follow electrolyte (2) E. coli gastroenteritis: Plan: History of E. coli gastroenteritis Status post treatment with azithromycin Possible reoccurrence Check stool cultures (3) Hematochezia: Plan: Hematochezia and questionable hematemesis GI consult Continue IV pantoprazole N.p.o. for now Serial hemoglobin determination (4) Dehydration: Plan: Continue IV fluids (5) Elevated hemoglobin: Plan: Trend labs May need to see hematology (6) Diabetes 1.5, managed as type 2: Plan: Sliding scale insulin Hold Ozempic, Jardiance and metformin Every 6 hours glucose determinations (7) Hyperlipidemia associated with type 2 diabetes mellitus: Plan: Hold statin for now and restart when clinically stable (8) GERD (gastroesophageal reflux disease): Plan: Continue IV pantoprazole GI consult (9) Depression: Plan: Restart [id number] medications when taking p.o. (10) Hypertension: Plan: Patient is on p.o. metoprolol 12.5 mg twice daily Give IV until taking p.o. as needed Plan Discussed case with ER provider Discussed the case with the patient and outlined treatment plan. Patient expresses understanding Patient is a full code SCDs for VTE prophylaxis hold on heparin due to to GI bleeding A total of 80 minutes spent in care planning and care for this patient. History of Present Illness Chief Complaint: Nausea, vomiting, bloody diarrhea Primary Care Provider: Clifford Avila MD Nasim Wilson is a 59-year-old male with a hx of anxiety, DM II, GERD, hypertension, neuropathy, MADY, Depression, HLD and testosterone deficiency who presented to the emergency department this evening for diarrhea. Patient was recently seen in the emergency department on 04/02/25 for diarrhea after eating a meatball sub. Stool cultures revealed an E. coli enterocolitis infection. He was started on azithromycin after his ER visit He reports his symptoms got better and he finished the antibiotics 2 days ago. He reports reoccurrence of the diarrhea 2 days ago. He also reports nausea with vomiting. He reports no fevers but does report chills. Patient reports hematochezia. He also reports blood streaking in his vomit also. Patient had multiple episodes of emesis during my evaluation despite Zofran. The vomitus is red-colored liquid form. He did just try to drink a red Powerade drink. States he has had multiple stools today all watery. There was some bright red blood. He states he has had a colonoscopy in the past that showed polyps and he is due and scheduled for colonoscopy this May. He has had an EGD in the past for GERD. Hemoglobin is slightly high at 11.99. His hemoglobin is 19. On 04/02 it was 19 as well. He is not aware of being told that he had a hemoglobin that was high in the past. He was told that he had iron deficiency in the past. Liver function testing and renal function are stable. [facility] [place]. 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 Allergies Allergy/AdvReac Type Severity Reaction Status Date / Time Penicillins Allergy Unknown CONVULSIONS Verified 04/02/25 19:04 - HAPPENED A CHILD gabapentin AdvReac Unknown "LOOPINESS Verified 04/02/25 19:04 AND DIFFICULTY WITH RECALL" Home Medications Medication Instructions Recorded Confirmed Type bupropion HCl 150 mg 24 hr tablet, 150 mg PO QAM ##0 09/23/17 04/09/25 History extended release hydrocodone 10 mg-acetaminophen 1 tab PO BID PRN Pain, 09/23/17 04/09/25 History 325 mg tablet Moderate-Severe ##0 methocarbamol 500 mg tablet 500 mg PO HS PRN Muscle Spasm ##0 09/23/17 04/09/25 History metoprolol tartrate 25 mg tablet 12.5 mg PO BID ##0 09/23/17 04/09/25 History ascorbic acid (vitamin C) 500 mg 1,000 mg PO DAILY 04/02/25 04/09/25 History tablet aspirin 81 mg tablet,delayed 81 mg PO DAILY 04/02/25 04/09/25 History release celecoxib 200 mg capsule (Celebrex) 200 mg PO BID PRN Pain 04/02/25 04/09/25 History coenzyme Q10 100 mg tablet 0 mg PO DAILY 04/02/25 04/09/25 History cyanocobalamin (vitamin B-12) 1,000 mcg PO DAILY 04/02/25 04/09/25 History 1,000 mcg tablet duloxetine 60 mg capsule,delayed 60 mg PO DAILY 04/02/25 04/09/25 History release empagliflozin 25 mg tablet 25 mg PO DAILY 04/02/25 04/09/25 History (Jardiance) ezetimibe 10 mg tablet (Zetia) 10 mg PO DAILY 04/02/25 04/09/25 History hydroxyzine HCl 50 mg tablet 100 mg PO BID PRN anxiety/sleep 04/02/25 04/09/25 History lidocaine 5 % topical patch 1 patch topical DAILY 04/02/25 04/09/25 History lysine 1,000 mg tablet 1,000 mg PO DAILY 04/02/25 04/09/25 History metformin 500 mg tablet,extended 500 mg PO DAILY 04/02/25 04/09/25 History release 24 hr methylphenidate HCl 27 mg 27 mg PO DAILY 04/02/25 04/09/25 History tablet,extended release 24 hr (Concerta) pantoprazole 20 mg tablet,delayed 20 mg PO BID 04/02/25 04/09/25 History release (Protonix) polyethylene glycol 3350 17 17 g PO BID PRN Constipation 04/02/25 04/09/25 Histo ry gram/dose oral powder (Miralax) pregabalin 300 mg capsule (Lyrica) 300 mg PO BID 04/02/25 04/09/25 History rosuvastatin 20 mg tablet (Crestor) 10 mg PO HS 04/02/25 04/09/25 History semaglutide 0.25 mg or 0.5 mg (2 0.5 mg subcut WK 04/02/25 04/09/25 History mg/3 mL) subcutaneous pen injector (Ozempic) sildenafil 100 mg tablet (Viagra) 50 mg PO UD PRN .ED 04/02/25 04/09/25 History testosterone 3 pump topical DAILY 04/02/25 04/09/25 History urea 20 % topical cream 1 applic topical DAILY PRN 04/02/25 04/09/25 History CALLUSING/FISSURING vitamins A,C,T-cjtt-gzgljd 2,148 1 tab PO DAILY 04/02/25 04/09/25 History mcg-113 mg-45 mg-17.4 mg tablet (PreserVision AREDS) zinc gluconate 50 mg tablet 50 mg PO DAILY 04/02/25 04/09/25 History zonisamide 25 mg capsule 25 mg PO BID 04/02/25 04/09/25 History dicyclomine 20 mg tablet 20 mg PO QID #20 tabs 04/03/25 04/09/25 Rx ondansetron 4 mg disintegrating 4 mg PO Q6H PRN nausea and 04/03/25 04/09/25 Rx tablet vomiting #14 tabs sucralfate 100 mg/mL oral 10 ml PO QID #420 mL 04/03/25 04/09/25 Rx suspension (Carafate) Past Med/Surg History Problem List (Updated 04/09/25 @ 21:29 by Jacob Caballero DO) Hypertension Depression Hematochezia GERD (gastroesophageal reflux disease) Hyperlipidemia associated with type 2 diabetes mellitus Diabetes 1.5, managed as type 2 Nausea & vomiting Elevated hemoglobin (Acute) Dehydration (Acute) Seizure-like activity Medical History (Updated 04/09/25 @ 21:29 by Jacob Caballero DO) Elevated hematocrit E. coli gastroenteritis Idiopathic polyneuropathy Social History Smoking Status: Never smoker Feels Safe at Home: Yes Review of Systems Review of Systems: Constitutional- no fever; he has had some weight loss from Ozempic. This was started about 7 weeks ago. He has chills. Eyes- no acute visual changes ENT- no sinus drainage; no pharyngitis Pulmonary- no cough, no wheezing, no shortness of breath Cardiac- no chest pain, no palpitations, no orthopnea, no dependent edema GI-positive for nausea, vomiting, diarrhea, hematochezia, question of hematemesis, has some mild diffuse abdominal discomfort and cramping - no dysuria, no hematuria Musculoskeletal- no arthralgias, no myalgias Derm- no rashes, no new skin lesions, no changing skin lesions Hematologic- no prior history of hemochromatosis, he states he had a history of iron deficiency anemia Lymphatics- no adenopathy Neuro- no headaches, no focal neurologic symptoms, he has neuropathy Psych-he has a history of depression Physical Exam Physical Exam: General- adult male seen at bedside, he has intractable vomiting, he appears ill Head- atraumatic Eyes- PERRL, EOMI, anicteric ENT- oropharynx clear Neck- supple, no JVD, no adenopathy, no thyromegaly; carotids +2/2, no bruits appreciated Lungs- clear to auscultation and percussion Heart- regular rhythm; no murmur, no gallop, no rub appreciated Abdomen- normal bowel sounds, soft, mild, diffuse tenderness, no masses or hepatosplenomegaly Extremities- no pretibial edema, no calf tenderness; peripheral pulses intact Neuro- alert, oriented x 3; PERRL, EOMI; no facial palsy; no dysarthria; motor 5/5 bilaterally; Skin- warm & dry Results & Data Results & Data Vital Signs (Past 12 Hours) Vital Signs Temp Pulse Pulse Resp BP BP Pulse Ox 04/09/25 19:43 122 H 23 136/117 H 96 04/09/25 18:00 104 H 18 127/96 97 04/09/25 16:09 104 H 04/09/25 15:46 04/09/25 15:38 37.0 C 90 16 132/80 98 O2 Del Method 04/09/25 19:43 Room Air 04/09/25 18:00 Room Air 04/09/25 16:09 04/09/25 15:46 Room Air 04/09/25 15:38 Room Air Diagnostic Findings Laboratory Results WBC 11.99 K/ul (4.8-10.8) H 04/09/25 16:09 RBC 7.93 M/uL (4.70-6.10) H 04/09/25 16:09 Hgb 19.0 g/dl (14.0-18.0) H 04/09/25 16:09 Hct 57.1 % (42.0-52.0) H 04/09/25 16:09 MCV 72.0 fL (80.0-100.0) L 04/09/25 16:09 MCH 24.0 pg (25.0-34.0) L 04/09/25 16:09 MCHC 33.3 g/dL (32.0-36.0) 04/09/25 16:09 RDW Std Deviation 41.9 fL (36.4-46.3) 04/09/25 16:09 RDW Coeff of Nicki 19.7 % (11.5-14.5) H 04/09/25 16:09 Plt Count 351 K/uL (130-400) 04/09/25 16:09 MPV 11.0 fL (9.4-12.4) 04/09/25 16:09 Immature Gran % (Auto) 0.5 % 04/09/25 16:09 Neut % (Auto) 55.8 % 04/09/25 16:09 Lymph % (Auto) 16.9 % 04/09/25 16:09 [place] % (Auto) 6.1 % 04/09/25 16:09 Eos % (Auto) 20.4 % 04/09/25 16:09 Baso % (Auto) 0.3 % 04/09/25 16:09 Neut # (Auto) 6.68 K/uL (1.40-6.50) H 04/09/25 16:09 Lymph # (Auto) 2.03 K/uL (1.20-3.40) 04/09/25 16:09 [place] # (Auto) 0.73 K/uL (0.11-0.59) H 04/09/25 16:09 Eos # (Auto) 2.45 K/uL (0.00-0.50) H 04/09/25 16:09 Baso # (Auto) 0.04 K/uL (0.00-0.20) 04/09/25 16:09 Immature Gran # (Auto) 0.06 K/uL (0.01-0.20) 04/09/25 16:09 Sodium 142 mmol/L (136-145) 04/09/25 16:09 Potassium 3.7 mmol/L (3.5-5.1) 04/09/25 16:09 Chloride 108 mmol/L (98-107) H 04/09/25 16:09 Carbon Dioxide 23 mmol/L (21-32) 04/09/25 16:09 Anion Gap 11 (3-11) 04/09/25 16:09 BUN 15 mg/dl (6-23) 04/09/25 16:09 Creatinine 0.98 mg/dl (0.6-1.4) 04/09/25 16:09 Est Cr Clr Drug Dosing 9.6 ml/min 04/09/25 16:09 eGFR 88.83 04/09/25 16:09 BUN/Creatinine Ratio 15.3 (10-20) 04/09/25 16:09 Glucose 154 mg/dl (70-99(Fasting)) H 04/09/25 16:09 Calcium 8.4 mg/dl (8.6-10.3) L 04/09/25 16:09 Total Bilirubin 0.7 mg/dl (0.2-1.0) 04/09/25 16:09 Direct Bilirubin 0.1 mg/dl (0-0.2) 04/09/25 16:09 AST 21 U/L (13-39) 04/09/25 16:09 ALT 20 U/L (7-52) 04/09/25 16:09 Alkaline Phosphatase 64 U/L (34-104) 04/09/25 16:09 Total Protein 7.0 gm/dl (6.0-8.3) 04/09/25 16:09 Albumin 3.8 gm/dl (3.4-5.0) 04/09/25 16:09 Lipase 21 U/L (11-82) 04/09/25 16:09 Urine Color Yellow 04/09/25 17:25 Urine Appearance Clear (Clear) 04/09/25 17:25 Urine pH 6.5 (4.5-7.5) 04/09/25 17:25 Ur Specific [place] 1.039 (1.000-1.030) H 04/09/25 17:25 Urine Protein Trace (Negative) H 04/09/25 17: Urine Glucose (UA) 3+ (Negative) H 04/09/25 17: Urine Ketones 3+ (Negative) H 04/09/25 17:25 Urine Blood Negative (Negative) 04/09/25 17: Urine Nitrite Negative (Negative) 04/09/25 17: Urine Bilirubin Negative (Negative) 04/09/25 17:25 Urine Urobilinogen Negative (Negative) 04/09/25 17:25 Ur Leukocyte Esterase Negative (Negative) 04/09/25 17:25 Urine WBC (Auto) 0-5 /hpf (0-5) 04/09/25 17:25 Urine RBC (Auto) 0-2 /hpf (0-2) 04/09/25 17:25 U Hyaline Cast (Auto) 0-2 /lpf (0-2) 04/09/25 17:25 U Epithel Cells (Auto) 0-2 /hpf (0-2) 04/09/25 17:25 Urine Bacteria (Auto) None Seen (None Seen) 04/09/25 17:25 Stool Occult Bld Scrn Positive (Negative) A 04/09/25 19:30 Impressions Abdomen/Pelvis CT 04/09/25 16:00 EXAMINATION: CT of the abdomen and pelvis performed after the administration of IV contrast TECHNIQUE: Helical CT images from the lung bases through the symphysis pubis were obtained with contrast. Coronal and sagittal reformatted images were generated at a workstation for further assessment. Dose reduction techniques were achieved by using automatic exposure control and/or adjustment of mA and/or kV according to patient size and/or use of iterative reconstruction technique. COMPARISON: April 02, 2025 HISTORY: Abdominal pain FINDINGS: Lower chest: No consolidation. No pleural effusion or pneumothorax. Liver: No suspicious liver lesions. Portal veins appear patent. Gallbladder: No gallstones. No evidence of acute cholecystitis. Spleen: Normal size. Pancreas: No suspicious pancreatic lesions. The pancreatic duct is not dilated. Adrenal glands: No adrenal nodules. Kidneys: No hydronephrosis or obstructing renal stones. Focal scarring at the mid left kidney. Bladder / Pelvic organs: Unremarkable. Bowel: No bowel obstruction. No abnormal bowel wall thickening. The appendix is unremarkable. Extensive fluid filling throughout the nondilated large bowel. Several nondilated loops of small bowel distally are fluid-filled. Lymph nodes: No retroperitoneal, mesenteric, or pelvic lymphadenopathy. Peritoneum / Retroperitoneum: No free fluid or air within the abdomen. Vessels: No infrarenal aortic aneurysm. Bones and soft tissues: No suspicious lesion in the bones. IMPRESSION: Several fluid-filled loops of small bowel, and fluid filling of the large bowel compatible with enteritis and diarrheal illness. No obstruction. Electronically signed by Adalid Lehman 04-09-2025 6:48 PM Medications Administered Current Inpatient Medications Pantoprazole Sodium 40 mg/ (Dextrose) 100 mls @ 20 mls/hr IV Q5H KEISHA Stop: 05/09/25 17:14 Last Admin: 04/09/25 18:13 Dose: 8 mg/hr, 20 mls/hr
[2025-04-09 20:44] LABS: Adenovirus F 40/41 PCR Not Detected (NotDetected); Astrovirus PCR Not Detected (NotDetected); Campylobacter PCR Not Detected (NotDetected); Cryptosporidium PCR Not Detected (NotDetected); Cyclospora cayetanensis PCR Not Detected (NotDetected); Entamoeba histolytica PCR Not Detected (NotDetected); Enteroaggregative E.coli(EAEC) Not Detected (NotDetected); Enteropathogenic E.coli (EPEC) Not Detected (NotDetected); Enterotoxigenic E.coli (ETEC) Not Detected (NotDetected); Giardia lamblia PCR Not Detected (NotDetected); Norovirus GI/GII PCR Not Detected (NotDetected); Plesiomonas shigelloides PCR Not Detected (NotDetected); Rotavirus A PCR Not Detected (NotDetected); Salmonella PCR Not Detected (NotDetected); Sapovirus PCR Not Detected (NotDetected); Shiga-like Toxin E.coli (STEC) Not Detected (NotDetected); Shigella/Enteroinvasive E.coli Not Detected (NotDetected); Vibrio cholerae PCR Not Detected (NotDetected); Vibrio species PCR Not Detected (NotDetected); Yersinia enterocolitica PCR Not Detected (NotDetected)
[2025-04-09] MEDS ORDERED: GLUCOSE 10 TAB/TUBE PO PRN (21:30)
[2025-04-09] MEDS ORDERED: DEXTROSE 50% 50 ML SYRINGE IV PRN (21:30)
[2025-04-09] MEDS ORDERED: GLUCOSE 40% GEL 15 GM TUBE PO PRN (21:30)
[2025-04-09] MEDS ORDERED: GLUCAGON FOR INJ 1 MG VIAL SQ PRN (21:30)
[2025-04-09] MEDS ORDERED: METHOCARBAMOL 500 MG TABLET PO PRN (21:30)
[2025-04-09] MEDS ORDERED: CARBOHYDRATES FOR HYPOGLYCEMIA PO PRN (21:30)
[2025-04-09] MEDS ORDERED: hydrOXYzine HCl 25 MG TAB PO PRN (21:30)
[2025-04-09] MEDS ORDERED: Patient's HEIGHT &/or WEIGHT Needed STA (21:38)
[2025-04-09] MEDS ORDERED: METOPROLOL TARTRATE 1 MG/ML VIAL IV PRN (21:43)
[2025-04-09] MEDS: INSULIN ASPART PER UNIT CHARGE SC SCH (21:53)
[2025-04-09] MEDS: PREGABALIN 150 MG CAP PO SCH (22:05)
[2025-04-09] MEDS: ROSUVASTATIN CALCIUM 10 MG TAB PO SCH (22:05)
[2025-04-09] MEDS: METOPROLOL TARTRATE 25 MG TAB PO SCH (22:05)
[2025-04-09] MEDS: DICYCLOMINE HCL 20 MG TAB PO SCH (22:06)
[2025-04-09] MEDS: SODIUM CHLORIDE 0.9% 1,000 ML IV SCH (22:09)
[2025-04-09] MEDS: CIPROFLOXACIN / D5W 400 MG/200 ML BAG IV SCH (23:00)
[2025-04-10] MEDS: HYDROcodone/ACETAMINOPHEN 10/325 TAB PO PRN (03:52)
[2025-04-10 06:50] LABS: Hematocrit (blood only) 45.9 % (42.0-52.0); Hemoglobin 15.1 g/dl (14.0-18.0); Mean Corpuscular Hgb Conc 32.9 g/dL (32.0-36.0); Mean Corpuscular Volume 73.1 fL (80.0-100.0); Mean Platelet Volume 10.6 fL (9.4-12.4); Platelet Count 280 K/uL (130-400); RDW Coefficient of Variation 18.6 % (11.5-14.5); Red Blood Count 6.28 M/uL (4.70-6.10); White Blood Count 9.42 K/ul (4.8-10.8)
[2025-04-10 06:57] LABS: BUN Creatinine Ratio 15.8 (10-20); Creatinine Clr Calc Pharmacy 100.4 ml/min; Potassium 3.2 mmol/L (3.5-5.1)
[2025-04-10] MEDS: ONDANSETRON INJ 2 MG/ML 2 ML VIAL IV PRN (07:42)
[2025-04-10] MEDS: ACETAMINOPHEN 325 MG TAB PO PRN (07:42)
[2025-04-10] MEDS: DULoxetine HCL 60 MG CAP PO SCH (07:43)
[2025-04-10] MEDS: ZONISAMIDE 25 MG CAPSULE PO SCH (07:43)
[2025-04-10] MEDS: EZETIMIBE 10 MG TAB PO SCH (07:43)
[2025-04-10] MEDS: buPROPion XL 150 MG TABCR PO SCH (07:44)
[2025-04-10] MEDS: POTASSIUM CHLORIDE / WTR 10 MEQ/100 ML PLCT IV SCH (07:56)
[2025-04-10] MEDS ORDERED: Nursing to Pharmacy Communication SCH ×2 (08:00→12:00)
[2025-04-10] MEDS: INSULIN ASPART PER UNIT CHARGE SC STA (08:00)
[2025-04-10 08:04] LABS: Estimated Average Glucose 134 mg/dl; Hemoglobin A1C 6.3 % (4.5-5.6)
--- NOTE | 2025-04-10 10:34 | Electrocardiogram Report ---
Test Reason : Blood Pressure : */* mmHG Vent. Rate : 109 BPM Atrial Rate : 109 BPM P-R Int : 142 ms QRS Dur : 80 ms QT Int : 348 ms P-R-T Axes : 70 -6 50 degrees QTcB Int : 468 ms Sinus tachycardia Possible Left atrial enlargement possible Inferior infarct (cited on or before 02-Apr-2025) Poor R wave progression, consider anterior MA vs. lead placement vs. LVH Abnormal ECG When compared with ECG of 02-Apr-2025 17:05, Nonspecific T wave abnormality now evident in Inferior leads Confirmed by Adalid Delacruz ([id number]) on 04/10/2025 10:34:07 AM Referred By: Clifford Avila Confirmed By: Adalid Delacruz
--- NOTE | 2025-04-10 10:35 | Gastrointestinal Consultation ---
Date of Consultation April 10, 2025 Assessment & Plan (1) Hematochezia: (2) Diarrhea: Plan Patient with ongoing diarrhea with bleeding after recent e coli infection. Most recent stool studies are unremarkable. Bleeding may be secondary to the frequency of his bowel movements. He has seen some improvement in other symptoms since admission but still having some diarrhea. CT scan still showing enteritis. Case reviewed with Dr. Ramon. - he would like to try advancing diet and see how he does since feeling better. will start with clears. - It does not sound like he had blood in his emesis, but rather red color may just be secondary to having drank a red sports drink. Hgb 15.1. can monitor. - recommend conservative management for now. will continue to follow. Supervising Physician Co-Signing Physician Notes Acute infection likely resolved. Probably has ongoing residual inflammation. Symptoms may persist for 2 to 3 weeks. Recommend frequent smaller meals probiotic may be of benefit. Patient has a history of hemorrhoids and fissures. Outpatient colonoscopy suggested. History of Present Illness Reason for Consultation: bloody diarrhea, e coli enteritis Requesting Physician: Sidra DE PAZ Attending Physician: Trina Elena MD History of Present Illness Patient is a 59 year old male with a past medical history of anxiety, DM II, GERD, hypertension, neuropathy, MADY, Depression, HLD, and testosterone deficiency who presented to the emergency department on 04/09 for diarrhea. Patient was recently seen in the emergency department on 04/02/25 for diarrhea he developed after eating a meatball sub. Stool cultures revealed an E. coli enterocolitis infection. He was started on azithromycin after his ER visit and reports his symptoms did improve and he finished the antibiotics 2 days prior to most recent ED visit. Watery diarrhea seemed to restart after he stopped the antibiotic with reports of 12-15 bowel movements daily. He also reports nausea with vomiting, along with lower abdominal pain. Patient reports mild hematochezia. He also notes that there was some red in his emesis but prior to this, he did just try to drink a red sports drink. He reports that today he is feeling significantly better outside of ongoing diarrhea. He feels he wants to try eating something. 04/09/25 stool studies unremarkable. heme positive stools. 04/10/25 WBC 9.4, hgb 15.1, hct 45.9, platelets 280. 04/09/25 CT Several fluid-filled loops of small bowel, and fluid filling of the large bowel compatible with enteritis and diarrheal illness. No obstruction. Allergies Allergy/AdvReac Type Severity Reaction Status Date / Time Penicillins Allergy Unknown CONVULSIONS Verified 04/02/25 19:04 - HAPPENED A CHILD gabapentin AdvReac Unknown "LOOPINESS Verified 04/02/25 19:04 AND DIFFICULTY WITH RECALL" Home Medications Medication Instructions Recorded Confirmed Type bupropion HCl 150 mg 24 hr tablet, 150 mg PO QAM ##0 09/23/17 04/09/25 History extended release hydrocodone 10 mg-acetaminophen 1 tab PO BID PRN Pain, 09/23/17 04/09/25 History 325 mg tablet Moderate-Severe ##0 methocarbamol 500 mg tablet 500 mg PO HS PRN Muscle Spasm ##0 09/23/17 04/09/25 History metoprolol tartrate 25 mg tablet 12.5 mg PO BID ##0 09/23/17 04/09/25 History ascorbic acid (vitamin C) 500 mg 1,000 mg PO DAILY 04/02/25 04/09/25 History tablet aspirin 81 mg tablet,delayed 81 mg PO DAILY 04/02/25 04/09/25 History release celecoxib 200 mg capsule (Celebrex) 200 mg PO BID PRN Pain 04/02/25 04/09/25 History coenzyme Q10 100 mg tablet 0 mg PO DAILY 04/02/25 04/09/25 History cyanocobalamin (vitamin B-12) 1,000 mcg PO DAILY 04/02/25 04/09/25 History 1,000 mcg tablet duloxetine 60 mg capsule,delayed 60 mg PO DAILY 04/02/25 04/09/25 History release empagliflozin 25 mg tablet 25 mg PO DAILY 04/02/25 04/09/25 History (Jardiance) ezetimibe 10 mg tablet (Zetia) 10 mg PO DAILY 04/02/25 04/09/25 History hydroxyzine HCl 50 mg tablet 100 mg PO BID PRN anxiety/sleep 04/02/25 04/09/25 History lidocaine 5 % topical patch 1 patch topical DAILY 04/02/25 04/09/25 History lysine 1,000 mg tablet 1,000 mg PO DAILY 04/02/25 04/09/25 History metformin 500 mg tablet,extended 500 mg PO DAILY 04/02/25 04/09/25 History release 24 hr methylphenidate HCl 27 mg 27 mg PO DAILY 04/02/25 04/09/25 History tablet,extended release 24 hr (Concerta) pantoprazole 20 mg tablet,delayed 20 mg PO BID 04/02/25 04/09/25 History release (Protonix) polyethylene glycol 3350 17 17 g PO BID PRN Constipation 04/02/25 04/09/25 History gram/dose oral powder (Miralax) pregabalin 300 mg capsule (Lyrica) 300 mg PO BID 04/02/25 04/09/25 History rosuvastatin 20 mg tablet (Crestor) 10 mg PO HS 04/02/25 04/09/25 History semaglutide 0.25 mg or 0.5 mg (2 0.5 mg subcut WK 04/02/25 04/09/25 History mg/3 mL) subcutaneous pen injector (Ozempic) sildenafil 100 mg tablet (Viagra) 50 mg PO UD PRN .ED 04/02/25 04/09/25 History testosterone 3 pump topical DAILY 04/02/25 04/09/25 History urea 20 % topical cream 1 applic topical DAILY PRN 04/02/25 04/09/25 History CALLUSING/FISSURING vitamins A,C,G-eihf-dyxpzh 2,148 1 tab PO DAILY 04/02/25 04/09/25 History mcg-113 mg-45 mg-17.4 mg tablet (PreserVision AREDS) zinc gluconate 50 mg tablet 50 mg PO DAILY 04/02/25 04/09/25 History zonisamide 25 mg capsule 25 mg PO BID 04/02/25 04/09/25 History dicyclomine 20 mg tablet 20 mg PO QID #20 tabs 04/03/25 04/09/25 Rx ondansetron 4 mg disintegrating 4 mg PO Q6H PRN nausea and 04/03/25 04/09/25 Rx tablet vomiting #14 tabs sucralfate 100 mg/mL oral 10 ml PO QID #420 mL 04/03/25 04/09/25 Rx suspension (Carafate) Patient History Medical History (Updated 04/10/25 @ 10:38 by Seth Garcia PA-C) Elevated hematocrit E. coli gastroenteritis Idiopathic polyneuropathy Social History Smoking Status: Never smoker Hx Alcohol Use: Yes Alcohol type: wine Hx Substance Use: No Preferred Language: German Communication Ability: Effective Probate Paralegal Required: No Beliefs That Will Affect Care: None Current Living Situation: Spouse Other Information That Helps Us Care for You: No Feels Safe at Home: Yes Safety Concerns: Feels Safe At This Time Assistive Devices: None Review of Systems Review of Systems: All systems reviewed & are unremarkable except as noted in HPI & below Physical Exam Constitutional: WD/WN, vitals as above Respiratory: normal respiratory effort, lungs clear to auscultation Cardiovascular: Rate/Rhythm: regular rate and regular rhythm Gastrointestinal (Abdomen): normal bowel sounds, soft, nontender, no hepatosplenomegaly Psychiatric: Orientation: alert and oriented x 3 Affect: euthymic affect Results & Data Vital Signs (Past 12 Hours) Vital Signs Temp Pulse Resp BP Pulse Ox O2 Del Method 04/10/25 07:34 98.2 F 85 18 132/84 96 Room Air Coding Level of Care Code 56401 IN/OBS CONSULT LVL 4,60M Diagnoses Hematochezia K92.1 Diarrhea R19.7
[2025-04-10] MEDS: PROCHLORPERAZINE 10 MG in SYRINGE 8 ML IV ONE (11:25)
[2025-04-10] MEDS: INSULIN ASPART PER UNIT CHARGE SC SCH ×2 (11:51→17:10)
[2025-04-10] MEDS: HYDROCORTISONE HC 2.5% CRM 30GM TUBE EXT SCH (13:04)
--- NOTE | 2025-04-10 17:21 | Hospitalist Progress Note ---
Date of Service April 10, 2025 Assessment & Plan (1) Nausea & vomiting: (2) E. coli gastroenteritis: (3) Hematochezia: (4) Dehydration: (5) Elevated hemoglobin: (6) Diabetes 1.5, managed as type 2: (7) Hyperlipidemia associated with type 2 diabetes mellitus: (8) GERD (gastroesophageal reflux disease): (9) Depression: (10) Hypertension: Plan: Mr. Nasim Wilson is a 59-year-old male with a hx of anxiety, DM II, GERD, hypertension, neuropathy, MADY, Depression, HLD and testosterone deficiency who was admitted for eval of ongoing nausea, vomting diarrhea, as well as concern for hematochezia. Patient with recent e coli gastroenteritis. Patient doing better today at this time # Nausea & vomiting #Diarrhea iso recent e coli gastroenteritis stool pcr this admission negative, s/p treatment with azithromycin discontinue ciprofloxacin continue anitiemetics prn Stop IVF at 3 L encourage po intake GI following #Hematochezia: Hematochezia likely 2/2 ongoing diarrheal illness, hematemesis likely iso powerade drink rather than blood advance diet as tolerated Serial hemoglobin determination plan for OP colonoscopy stop PPI drip, and start po ppi in am #Dehydration: #Elevated hemoglobin: hgb 19 initially but suspect dehydration, now 15; however will follow labs # Diabetes 1.5, managed as type 2: Sliding scale insulin Hold Ozempic, Jardiance and metformin #Hyperlipidemia associated with type 2 diabetes mellitus: continue statin on d/c #GERD (gastroesophageal reflux disease): po ppi in am # Depression: Restart qduq-fxn-xuzurcu medications when taking p.o. # Hypertension: Patient is on p.o. metoprolol 12.5 mg twice daily Plan scds possible DC tomorrow if hgb stable and tolerating po Admission and Anticipated Discharge Date Admission Date: April 09, 2025 Subjective Reports some subjective improvement but still with residual nausea reports continue abdominal discomfort and spasm, but less intense than day prior no further emesis, no further blood noted in stool Physical Exam Constitutional: WD/WN, vitals as above Respiratory: normal respiratory effort, lungs clear to auscultation Cardiovascular: RRR, no murmur, no edema Gastrointestinal (Abdomen): normal bowel sounds, soft, nontender, no hepatosplenomegaly Results & Data Results & Data Vital Signs (Past 12 Hours) Vital Signs Temp Pulse Pulse Resp BP BP Pulse Ox 04/10/25 15:06 36.5 C 74 16 103/67 99 04/10/25 07:34 36.8 C 85 18 132/84 96 O2 Del Method 04/10/25 15:06 Room Air 04/10/25 07:34 Room Air Laboratory Results Short CBC 04/10/25 Range/Units 06:20 WBC 9.42 (4.8-10.8) K/ul Hgb 15.1 D (14.0-18.0) g/dl Hct 45.9 (42.0-52.0) % Plt Count 280 (130-400) K/uL BMP 04/10/25 06:20 Sodium 141 Potassium 3.2 L Chloride 109 H Carbon Dioxide 29 BUN 15 Creatinine 0.95 Glucose 96 Calcium 7.0 L Urine 04/09/25 Range/Units 17:25 Urine Color Yellow Urine Appearance Clear (Clear) Urine pH 6.5 (4.5-7.5) Ur Specific [place] 1.039 H (1.000-1.030) Urine Protein Trace H (Negative) Urine Glucose (UA) 3+ H (Negative) Medications Administered Home Medications Medication Instructions Recorded Confirmed Last Taken bupropion HCl 150 mg 24 hr tablet, 150 mg PO QAM ##0 09/23/17 04/09/25 Unknown extended release hydrocodone 10 mg-acetaminophen 1 tab PO BID PRN Pain, 09/23/17 04/09/25 Unknown 325 mg tablet Moderate-Severe ##0 methocarbamol 500 mg tablet 500 mg PO HS PRN Muscle Spasm ##0 09/23/17 04/09/25 Unknown metoprolol tartrate 25 mg tablet 12.5 mg PO BID ##0 09/23/17 04/09/25 Unknown ascorbic acid (vitamin C) 500 mg 1,000 mg PO DAILY 04/02/25 04/09/25 Unknown tablet aspirin 81 mg tablet,delayed 81 mg PO DAILY 04/02/25 04/09/25 Unknown release celecoxib 200 mg capsule (Celebrex) 200 mg PO BID PRN Pain 04/02/25 04/09/25 Unknown coenzyme Q10 100 mg tablet 0 mg PO DAILY 04/02/25 04/09/25 Unknown cyanocobalamin (vitamin B-12) 1,000 mcg PO DAILY 04/02/25 04/09/25 Unknown 1,000 mcg tablet duloxetine 60 mg capsule,delayed 60 mg PO DAILY 04/02/25 04/09/25 Unknown release empagliflozin 25 mg tablet 25 mg PO DAILY 04/02/25 04/09/25 Unknown (Jardiance) ezetimibe 10 mg tablet (Zetia) 10 mg PO DAILY 04/02/25 04/09/25 Unknown hydroxyzine HCl 50 mg tablet 100 mg PO BID PRN anxiety/sleep 04/02/25 04/09/25 Unknown lidocaine 5 % topical patch 1 patch topical DAILY 04/02/25 04/09/25 Unknown lysine 1,000 mg tablet 1,000 mg PO DAILY 04/02/25 04/09/25 Unknown metformin 500 mg tablet,extended 500 mg PO DAILY 04/02/25 04/09/25 Unknown release 24 hr methylphenidate HCl 27 mg 27 mg PO DAILY 04/02/25 04/09/25 Unknown tablet,extended release 24 hr (Concerta) pantoprazole 20 mg tablet,delayed 20 mg PO BID 04/02/25 04/09/25 Unknown release (Protonix) polyethylene glycol 3350 17 17 g PO BID PRN Constipation 04/02/25 04/09/25 Unknown gram/dose oral powder (Miralax) pregabalin 300 mg capsule (Lyrica) 300 mg PO BID 04/02/25 04/09/25 Unknown rosuvastatin 20 mg tablet (Crestor) 10 mg PO HS 04/02/25 04/09/25 Unknown semaglutide 0.25 mg or 0.5 mg (2 0.5 mg subcut WK 04/02/25 04/09/25 Unknown mg/3 mL) subcutaneous pen injector (Ozempic) sildenafil 100 mg tablet (Viagra) 50 mg PO UD PRN .ED 04/02/25 04/09/25 Unknown testosterone 3 pump topical DAILY 04/02/25 04/09/25 Unknown urea 20 % topical cream 1 applic topical DAILY PRN 04/02/25 04/09/25 Unknown CALLUSING/FISSURING vitamins A,C,W-xqnp-akjxfj 2,148 1 tab PO DAILY 04/02/25 04/09/25 Unknown mcg-113 mg-45 mg-17.4 mg tablet (PreserVision AREDS) zinc gluconate 50 mg tablet 50 mg PO DAILY 04/02/25 04/09/25 Unknown zonisamide 25 mg capsule 25 mg PO BID 04/02/25 04/09/25 Unknown dicyclomine 20 mg tablet 20 mg PO QID #20 tabs 04/03/25 04/09/25 Unknown ondansetron 4 mg disintegrating 4 mg PO Q6H PRN nausea and 04/03/25 04/09/25 Unknown tablet vomiting #14 tabs sucralfate 100 mg/mL oral 10 ml PO QID #420 mL 04/03/25 04/09/25 Unknown suspension (Carafate) Active Medications Generic Name Dose Route Start Last Admin Trade Name Freq PRN Reason Stop Dose Admin Acetaminophen 650 mg 04/09/25 21:30 04/10/25 07:42 Acetaminophen 325 Mg Tab PO 05/09/25 21:29 650 mg Q4H PRN Administration pain/fever Hydrocodone Bitart/Acetaminophen 1 tab 04/09/25 21:30 04/10/25 03:52 Hydrocodone/Acetaminophen 10/325 Tab PO 04/23/25 21:29 1 tab BID PRN Administration Pain, Moderate-Severe Bupropion HCl 150 mg 04/10/25 09:00 04/10/25 07:44 Bupropion Xl 150 Mg Tabcr PO 05/10/25 08:59 150 mg QAM KEISHA Administration Dicyclomine HCl 20 mg 04/09/25 21:30 04/10/25 16:59 Dicyclomine Hcl 20 Mg Tab PO 05/09/25 21:29 20 mg QID KEISHA Administration Duloxetine HCl 60 mg 04/10/25 09:00 04/10/25 07:43 Duloxetine Hcl 60 Mg Cap PO 05/10/25 08:59 60 mg DAILY KEISHA Administration Ezetimibe 10 mg 04/10/25 09:00 04/10/25 07:43 Ezetimibe 10 Mg Tab PO 05/10/25 08:59 10 mg DAILY KEISHA Administration Hydrocortisone 1 appln 04/10/25 11:00 04/10/25 13:04 Hydrocortisone Hc 2.5% Crm 30gm Tube EXT 05/10/25 10:59 1 appln Q12H KEISHA Administration Pantoprazole Sodium 40 mg/ 100 mls @ 20 mls/hr 04/09/25 17:15 04/10/25 14:23 Dextrose IV 05/09/25 17:14 8 mg/hr Q5H KEISHA 20 mls/hr Administration 8 MG/HR Ciprofloxacin 400 mg in 200 mls @ 100 mls/hr 04/09/25 22:00 04/10/25 11:36 Cipro / D5w IV 04/19/25 21:59 Infused Q12H KEISHA Infusion Protocol Sodium Chloride 1,000 mls @ 125 mls/hr 04/09/25 21:30 04/10/25 13:09 Nss IV 04/12/25 21:29 125 mls/hr .Q8H KEISHA Administration Insulin Aspart 0 units 04/10/25 16:30 04/10/25 17:10 Insulin Aspart Per Unit Charge SC 05/10/25 16:29 5 units ACHS KEISHA Administration Metoprolol Tartrate 12.5 mg 04/09/25 21:30 04/10/25 07:44 Metoprolol Tartrate 25 Mg Tab PO 05/09/25 21:29 12.5 mg BID KEISHA Administration Miscellaneous 1 each 04/10/25 00:00 04/10/25 13:10 Methylphenidate Hcl [Concerta] 27 Mg Tablet Extended Release 24h--Order Awaiting Action N/A 05/10/25 00:00 Not Given QS KEISHA Ondansetron HCl 4 mg 04/09/25 21:30 04/10/25 07:42 Ondansetron Inj 2 Mg/Ml 2 Ml Vial IV 05/09/25 21:29 4 mg Q6H PRN Administration Nausea Pregabalin 300 mg 04/09/25 21:30 04/10/25 07:42 Pregabalin 150 Mg Cap PO 05/09/25 21:29 300 mg BID KEISHA Administration Rosuvastatin Calcium 10 mg 04/09/25 21:30 04/09/25 22:05 Rosuvastatin Calcium 10 Mg Tab PO 05/09/25 21:29 10 mg HS KEISHA Administration Zonisamide 25 mg 04/10/25 09:00 04/10/25 07:43 Zonisamide 25 Mg Capsule PO 05/10/25 08:59 25 mg BID KEISHA Administration
[2025-04-10 18:37] LABS: Hematocrit (blood only) 42.4 % (42.0-52.0); Hemoglobin 13.9 g/dl (14.0-18.0)
[2025-04-10] MEDS: PROCHLORPERAZINE MALEATE 5 MG TAB PO PRN (19:51)
[2025-04-11] MEDS: PANTOprazole 40 MG TAB PO SCH (09:26)
--- NOTE | 2025-04-11 10:04 | Gastroenterology Progress Note ---
Date of Service April 11, 2025 Assessment & Plan (1) Diarrhea: Plan: Patient has had ongoing diarrhea, though feels nausea and abdominal pain is somewhat improved. We discussed performing colonoscopy to further evaluate but he wants to hold off as he does feel like he is maybe turning the corner. he would like to try a more regular diet today and see how he does before making a decision on any further testing. Admission and Anticipated Discharge Date Admission Date: April 09, 2025 Supervising Physician Co-Signing Physician Notes Ongoing symptoms potentially is related to resolving E. coli infection. He is E. coli negative at this time. If continues to act active symptoms could consider inpatient colonoscopy. I reviewed that with him today. Would like to wait another day. Will reassess him tomorrow and make decisions on outpatient versus inpatient colonoscopy. Subjective patient tells me that he still has significant diarrhea, but does feel like he is progressing in a positive direction. he still has some nausea and abdominal discomfort, though tells me that it is improved. Review of Systems Review of Systems: All systems reviewed & are unremarkable except as noted in HPI & below Physical Exam Constitutional: WD/WN, vitals as above Respiratory: normal respiratory effort, lungs clear to auscultation Cardiovascular: Rate/Rhythm: regular rate and regular rhythm Gastrointestinal (Abdomen): mild diffuse tenderness, no guarding, soft. normal bowel sounds. Psychiatric: Orientation: alert and oriented x 3 Affect: euthymic affect Results & Data Results & Data Vital Signs (Past 12 Hours) Vital Signs Temp Pulse Resp BP Pulse Ox O2 Del Method 04/11/25 07:05 97.9 F 76 16 113/71 97 Room Air Coding Level of Care Code 43414 SUB INP/OBS CARE 2/35MIN Diagnoses Diarrhea R19.7
[2025-04-11 10:08] LABS: Basophils # (auto) 0.02 K/uL (0.00-0.20); Basophils % (auto) 0.2 %; Eosinophils # (auto) 1.91 K/uL (0.00-0.50); Eosinophils % (auto) 20.3 %; Hematocrit (blood only) 42.6 % (42.0-52.0); Hemoglobin 13.9 g/dl (14.0-18.0); Immature Granulocytes # (auto) 0.04 K/uL (0.01-0.20); Immature Granulocytes % (auto) 0.4 %; Lymphocytes # (auto) 2.29 K/uL (1.20-3.40); Lymphocytes % (auto) 24.4 %; Mean Corpuscular Hemoglobin 23.8 pg (25.0-34.0); Mean Corpuscular Hgb Conc 32.6 g/dL (32.0-36.0); Mean Corpuscular Volume 73.1 fL (80.0-100.0); Mean Platelet Volume 9.6 fL (9.4-12.4); Monocytes % (auto) 6.4 %; Neutrophils # (auto) 4.54 K/uL (1.40-6.50); Neutrophils % (auto) 48.3 %; Platelet Count 245 K/uL (130-400); RDW Coefficient of Variation 18.7 % (11.5-14.5); RDW Standard Deviation 45.1 fL (36.4-46.3); Red Blood Count 5.83 M/uL (4.70-6.10)
[2025-04-11 10:29] LABS: Albumin Globulin Ratio 1.3 (0.9-2); Albumin Level 2.9 gm/dl (3.4-5.0); BUN Creatinine Ratio 7.5 (10-20); Bilirubin,Total 0.4 mg/dl (0.2-1.0); Calcium 7.5 mg/dl (8.6-10.3); Creatinine Clr Calc Pharmacy 102.6 ml/min; Globulin 2.2 gm/dl (2.5-4.0); Magnesium 1.6 mg/dl (1.7-2.4); Phosphorus 2.9 mg/dl (2.5-4.9); Potassium 3.3 mmol/L (3.5-5.1); Total Protein 5.1 gm/dl (6.0-8.3)
--- NOTE | 2025-04-11 12:54 | Hospitalist Progress Note ---
Date of Service April 11, 2025 Assessment & Plan (1) Nausea & vomiting: (2) Hematochezia: (3) Dehydration: (4) Elevated hemoglobin: (5) Diabetes 1.5, managed as type 2: (6) Hyperlipidemia associated with type 2 diabetes mellitus: (7) GERD (gastroesophageal reflux disease): (8) Depression: (9) Hypertension: Plan: Mr. Nasim Wilson is a 59-year-old male with a hx of anxiety, DM II, GERD, hypertension, neuropathy, MADY, Depression, HLD and testosterone deficiency who was admitted for eval of ongoing nausea, vomting diarrhea, as well as concern for hematochezia. Patient with recent e coli gastroenteritis. Patient doing better today at this time Nausea & vomiting Diarrhea iso recent e coli gastroenteritis stool pcr this admission negative, s/p treatment with azithromycin discontinue ciprofloxacin continue anitiemetics prn Stop IVF at 3 L encourage po intake GI following Hematochezia: Hematochezia likely 2/2 ongoing diarrheal illness, hematemesis likely iso powerade drink rather than blood advance diet as tolerated Serial hemoglobin determination plan for OP colonoscopy stop PPI drip, and start po ppi in am Dehydration: #Elevated hemoglobin: hgb 19 initially but suspect dehydration, now 15; however will follow labs Diabetes 1.5, managed as type 2: Sliding scale insulin Hold Ozempic, Jardiance and metformin Hyperlipidemia associated with type 2 diabetes mellitus: continue statin on d/c GERD (gastroesophageal reflux disease): po ppi in am Depression: Restart [id number] medications when taking p.o. Hypertension: Patient is on p.o. metoprolol 12.5 mg twice daily Plan scds possible DC tomorrow if hgb stable and tolerating po Admission and Anticipated Discharge Date Admission Date: April 09, 2025 Subjective Pt was seen laying in bed resting comfortably Notes no recent bloody stools Review of Systems Review of Systems: All systems reviewed & are unremarkable except as noted in Subjective Physical Exam Physical Exam: General: Alert, oriented. No acute distress Skin: No noted rashes or bruises Psych: Appropriate mood and affect Neuro: No gross deficits HEENT: NC/AT, PERRLA, EOMI, oropharynx moist. Chest: Nontender to palpation. CV: RRR, Normal s1, s2. No murmurs appreciated Resp: Breath sounds clear bilaterally, no increased effort of breathing. No crackles/rhonchi/rales. Abdomen: BS+. Soft, nontender, nondistended. No guarding. No organomegaly appreciated. Extremities: No edema in lower extremities bilaterally. Results & Data Results & Data Vital Signs (Past 12 Hours) Vital Signs Temp Pulse Resp BP Pulse Ox O2 Del Method 04/11/25 07:05 36.6 C 76 16 113/71 97 Room Air
[2025-04-11] MEDS: MAGNESIUM OXIDE 400 MG TAB PO SCH (13:48)
[2025-04-11] MEDS: POTASSIUM CHLORIDE CRTAB 20 MEQ TABCR PO STA (13:48)
[2025-04-12] MEDS: COUGH DROP (SUGAR FREE) LOZ 24 LOZ/1 BOX BUCCAL ONE (01:56)
[2025-04-12 06:58] LABS: Basophils # (auto) 0.03 K/uL (0.00-0.20); Basophils % (auto) 0.3 %; Eosinophils # (auto) 2.64 K/uL (0.00-0.50); Eosinophils % (auto) 22.9 %; Hematocrit (blood only) 41.5 % (42.0-52.0); Hemoglobin 13.6 g/dl (14.0-18.0); Immature Granulocytes # (auto) 0.06 K/uL (0.01-0.20); Immature Granulocytes % (auto) 0.5 %; Lymphocytes # (auto) 3.33 K/uL (1.20-3.40); Lymphocytes % (auto) 28.8 %; Mean Corpuscular Hemoglobin 24.2 pg (25.0-34.0); Mean Corpuscular Hgb Conc 32.8 g/dL (32.0-36.0); Mean Corpuscular Volume 73.7 fL (80.0-100.0); Mean Platelet Volume 10.4 fL (9.4-12.4); Monocytes # (auto) 0.69 K/uL (0.11-0.59); Neutrophils % (auto) 41.5 %; Platelet Count 287 K/uL (130-400); RDW Coefficient of Variation 18.5 % (11.5-14.5); RDW Standard Deviation 45.2 fL (36.4-46.3); Red Blood Count 5.63 M/uL (4.70-6.10); White Blood Count 11.55 K/ul (4.8-10.8)
[2025-04-12 07:23] LABS: Albumin Globulin Ratio 1.3 (0.9-2); BUN Creatinine Ratio 8.1 (10-20); Bilirubin,Total 0.3 mg/dl (0.2-1.0); Calcium 8.2 mg/dl (8.6-10.3); Creatinine Clr Calc Pharmacy 96.3 ml/min; Globulin 2.3 gm/dl (2.5-4.0); Potassium 4.1 mmol/L (3.5-5.1); Total Protein 5.3 gm/dl (6.0-8.3)
[2025-04-12] MEDS: METHYLPHENIDATE HCL 10 MG TABLET PO SCH (08:44)
--- NOTE | 2025-04-12 10:02 | Gastroenterology Progress Note ---
Date of Service April 12, 2025 Assessment & Plan (1) Hematochezia: (2) Diarrhea: Plan Patient has had ongoing issue with abdominal pain, diarrhea, and rectal bleeding. - will place patient back on clears and plan to prep later today. - will plan for colonoscopy tomorrow. Admission and Anticipated Discharge Date Admission Date: April 09, 2025 Subjective Patient has been having ongoing abdominal pain and diarrhea. he is now seeing blood in his stools. he wishes to proceed with a colonoscopy to further evaluate. Review of Systems Review of Systems: All systems reviewed & are unremarkable except as noted in HPI & below Physical Exam Constitutional: WD/WN, vitals as above Respiratory: normal respiratory effort, lungs clear to auscultation Cardiovascular: Rate/Rhythm: regular rate and regular rhythm Gastrointestinal (Abdomen): diffuse tenderness, no guarding, soft, normal bowel sounds. Psychiatric: Orientation: alert and oriented x 3 Affect: euthymic affect Results & Data Results & Data Vital Signs (Past 12 Hours) Vital Signs Temp Pulse Resp BP Pulse Ox O2 Del Method 04/12/25 07:39 97.7 F 70 16 131/80 97 Room Air Coding Level of Care Code 36742 SUB INP/OBS CARE 2/35MIN Diagnoses Hematochezia K92.1 Diarrhea R19.7
--- NOTE | 2025-04-12 13:31 | Hospitalist Progress Note ---
Date of Service April 12, 2025 Assessment & Plan (1) Nausea & vomiting: (2) Hematochezia: (3) Dehydration: (4) Elevated hemoglobin: (5) Diabetes 1.5, managed as type 2: (6) Hyperlipidemia associated with type 2 diabetes mellitus: (7) GERD (gastroesophageal reflux disease): (8) Depression: (9) Hypertension: Plan: Mr. Nasim Wilson is a 59-year-old male with a hx of anxiety, DM II, GERD, hypertension, neuropathy, MADY, Depression, HLD and testosterone deficiency who was admitted for eval of ongoing nausea, vomting diarrhea, as well as concern for hematochezia. Patient with recent e coli gastroenteritis. Patient doing better today at this time Nausea & vomiting Diarrhea iso recent e coli gastroenteritis stool pcr this admission negative, s/p treatment with azithromycin discontinue ciprofloxacin continue anitiemetics prn Stop IVF at 3 L encourage po intake GI following -colonoscopy in AM Hematochezia: Hematochezia likely 2/2 ongoing diarrheal illness, hematemesis likely iso powerade drink rather than blood advance diet as tolerated Serial hemoglobin determination plan for colonoscopy in AM stop PPI drip, and start po ppi in am Dehydration: #Elevated hemoglobin: hgb 19 initially but suspect dehydration, now 15; however will follow labs Diabetes 1.5, managed as type 2: Sliding scale insulin Hold Ozempic, Jardiance and metformin Hyperlipidemia associated with type 2 diabetes mellitus: continue statin on d/c GERD (gastroesophageal reflux disease): po ppi in am Depression: Restart slmy-air-kkygtid medications when taking p.o. Hypertension: Patient is on p.o. metoprolol 12.5 mg twice daily Plan scds possible DC tomorrow if hgb stable and tolerating po Admission and Anticipated Discharge Date Admission Date: April 09, 2025 Subjective Pt was seen in [phone] Had just had another bloody BM he states Will have colonoscopy in the AM Review of Systems Review of Systems: All systems reviewed & are unremarkable except as noted in Subjective Physical Exam Physical Exam: General: Alert, oriented. No acute distress Skin: No noted rashes or bruises Psych: Appropriate mood and affect Neuro: No gross deficits HEENT: NC/AT CV: RRR Resp: Breath sounds clear bilaterally, no increased effort of breathing Abdomen: BS+. Soft, tender, distended. Extremities: No edema in lower extremities bilaterally. Results & Data Results & Data Vital Signs (Past 12 Hours) Vital Signs Temp Pulse Resp BP Pulse Ox O2 Del Method 04/12/25 07:39 36.5 C 70 16 131/80 97 Room Air
[2025-04-12] MEDS: LAVAGE SOLUTION 4000ML PO SCH (16:28)
[2025-04-12] MEDS ORDERED: Nursing to Pharmacy Communication SCH (23:45)
[2025-04-13] MEDS: INSULIN ASPART PER UNIT CHARGE SC SCH (06:09)
[2025-04-13 06:21] LABS: Basophils # (auto) 0.03 K/uL (0.00-0.20); Basophils % (auto) 0.3 %; Eosinophils # (auto) 3.13 K/uL (0.00-0.50); Eosinophils % (auto) 26.8 %; Hematocrit (blood only) 42.4 % (42.0-52.0); Hemoglobin 14.2 g/dl (14.0-18.0); Immature Granulocytes # (auto) 0.05 K/uL (0.01-0.20); Immature Granulocytes % (auto) 0.4 %; Lymphocytes # (auto) 3.14 K/uL (1.20-3.40); Lymphocytes % (auto) 26.9 %; Mean Corpuscular Hemoglobin 24.5 pg (25.0-34.0); Mean Corpuscular Hgb Conc 33.5 g/dL (32.0-36.0); Mean Corpuscular Volume 73.2 fL (80.0-100.0); Mean Platelet Volume 9.8 fL (9.4-12.4); Monocytes # (auto) 0.71 K/uL (0.11-0.59); Monocytes % (auto) 6.1 %; Neutrophils # (auto) 4.63 K/uL (1.40-6.50); Neutrophils % (auto) 39.5 %; Platelet Count 309 K/uL (130-400); RDW Standard Deviation 44.5 fL (36.4-46.3); Red Blood Count 5.79 M/uL (4.70-6.10); White Blood Count 11.69 K/ul (4.8-10.8)
[2025-04-13 06:56] LABS: Albumin Globulin Ratio 1.3 (0.9-2); Albumin Level 3.2 gm/dl (3.4-5.0); BUN Creatinine Ratio 6.1 (10-20); Bilirubin,Total 0.4 mg/dl (0.2-1.0); Calcium 8.5 mg/dl (8.6-10.3); Creatinine Clr Calc Pharmacy 97.3 ml/min; Globulin 2.4 gm/dl (2.5-4.0); Potassium 3.6 mmol/L (3.5-5.1); Total Protein 5.6 gm/dl (6.0-8.3)
--- NOTE | 2025-04-13 10:18 | History & Physical Bridge Note ---
Date of Service April 13, 2025 History & Physical Bridge Note I have examined the patient, reviewed the History & Physical and in the interval since the performance of the History & Physical I have noted the following changes of clinical significance: no changes noted. Patient completed prep. stools were clearing towards end of this. no chest pain or sob. He still has abdominal discomfort. - plan for colonoscopy today.
--- NOTE | 2025-04-13 10:42 | Anesthesiology Consultation ---
Date of Service April 13, 2025 History Surgery Operation Date: 04/13/25 16:30 Proposed Procedures p Colonoscopy Dr. Tristen Ramon MD Height/Weight Height: 5 ft 9 in Weight: 105.912 kg Allergies Allergy/AdvReac Type Severity Reaction Status Date / Time Penicillins Allergy Unknown CONVULSIONS Verified 04/02/25 19:04 - HAPPENED A CHILD gabapentin AdvReac Unknown "LOOPINESS Verified 04/02/25 19:04 AND DIFFICULTY WITH RECALL" Medications Home Medications Medication Instructions Recorded Confirmed Last Taken bupropion HCl 150 mg 24 hr tablet, 150 mg PO QAM ##0 09/23/17 04/09/25 Unknown extended release hydrocodone 10 mg-acetaminophen 1 tab PO BID PRN Pain, 09/23/17 04/09/25 Unknown 325 mg tablet Moderate-Severe ##0 methocarbamol 500 mg tablet 500 mg PO HS PRN Muscle Spasm ##0 09/23/17 04/09/25 Unknown metoprolol tartrate 25 mg tablet 12.5 mg PO BID ##0 09/23/17 04/09/25 Unknown ascorbic acid (vitamin C) 500 mg 1,000 mg PO DAILY 04/02/25 04/09/25 Unknown tablet aspirin 81 mg tablet,delayed 81 mg PO DAILY 04/02/25 04/09/25 Unknown release celecoxib 200 mg capsule (Celebrex) 200 mg PO BID PRN Pain 04/02/25 04/09/25 Unknown coenzyme Q10 100 mg tablet 0 mg PO DAILY 04/02/25 04/09/25 Unknown cyanocobalamin (vitamin B-12) 1,000 mcg PO DAILY 04/02/25 04/09/25 Unknown 1,000 mcg tablet duloxetine 60 mg capsule,delayed 60 mg PO DAILY 04/02/25 04/09/25 Unknown release empagliflozin 25 mg tablet 25 mg PO DAILY 04/02/25 04/09/25 Unknown (Jardiance) ezetimibe 10 mg tablet (Zetia) 10 mg PO DAILY 04/02/25 04/09/25 Unknown hydroxyzine HCl 50 mg tablet 100 mg PO BID PRN anxiety/sleep 04/02/25 04/09/25 Unknown lidocaine 5 % topical patch 1 patch topical DAILY 04/02/25 04/09/25 Unknown lysine 1,000 mg tablet 1,000 mg PO DAILY 04/02/25 04/09/25 Unknown metformin 500 mg tablet,extended 500 mg PO DAILY 04/02/25 04/09/25 Unknown release 24 hr methylphenidate HCl 27 mg 27 mg PO DAILY 04/02/25 04/09/25 Unknown tablet,extended release 24 hr (Concerta) pantoprazole 20 mg tablet,delayed 20 mg PO BID 04/02/25 04/09/25 Unknown release (Protonix) polyethylene glycol 3350 17 17 g PO BID PRN Constipation 04/02/25 04/09/25 Unknown gram/dose oral powder (Miralax) pregabalin 300 mg capsule (Lyrica) 300 mg PO BID 04/02/25 04/09/25 Unknown rosuvastatin 20 mg tablet (Crestor) 10 mg PO HS 04/02/25 04/09/25 Unknown semaglutide 0.25 mg or 0.5 mg (2 0.5 mg subcut WK 04/02/25 04/09/25 Unknown mg/3 mL) subcutaneous pen injector (Ozempic) sildenafil 100 mg tablet (Viagra) 50 mg PO UD PRN .ED 04/02/25 04/09/25 Unknown testosterone 3 pump topical DAILY 04/02/25 04/09/25 Unknown urea 20 % topical cream 1 applic topical DAILY PRN 04/02/25 04/09/25 Unknown CALLUSING/FISSURING vitamins A,C,S-tstg-vvfphr 2,148 1 tab PO DAILY 04/02/25 04/09/25 Unknown mcg-113 mg-45 mg-17.4 mg tablet (PreserVision AREDS) zinc gluconate 50 mg tablet 50 mg PO DAILY 04/02/25 04/09/25 Unknown zonisamide 25 mg capsule 25 mg PO BID 04/02/25 04/09/25 Unknown dicyclomine 20 mg tablet 20 mg PO QID #20 tabs 04/03/25 04/09/25 Unknown ondansetron 4 mg disintegrating 4 mg PO Q6H PRN nausea and 04/03/25 04/09/25 Unknown tablet vomiting #14 tabs sucralfate 100 mg/mL oral 10 ml PO QID #420 mL 04/03/25 04/09/25 Unknown suspension (Carafate) Active Medications Generic Name Dose Route Start Last Admin Trade Name Freq PRN Reason Stop Dose Admin Acetaminophen 650 mg 04/09/25 21:30 04/12/25 19:32 Acetaminophen 325 Mg Tab PO 05/09/25 21:29 650 mg Q4H PRN Administration pain/fever Hydrocodone Bitart/Acetaminophen 1 tab 04/09/25 21:30 04/12/25 08:44 Hydrocodone/Acetaminophen 10/325 Tab PO 04/23/25 21:29 1 tab BID PRN Administration Pain, Moderate-Severe Bupropion HCl 150 mg 04/10/25 09:00 04/13/25 07:58 Bupropion Xl 150 Mg Tabcr PO 05/10/25 08:59 150 mg QAM KEISHA Administration Dicyclomine HCl 20 mg 04/09/25 21:30 04/13/25 07:59 Dicyclomine Hcl 20 Mg Tab PO 05/09/25 21:29 20 mg QID KEISHA Administration Duloxetine HCl 60 mg 04/10/25 09:00 04/13/25 07:58 Duloxetine Hcl 60 Mg Cap PO 05/10/25 08:59 60 mg DAILY KEISHA Administration Ezetimibe 10 mg 04/10/25 09:00 04/13/25 07:59 Ezetimibe 10 Mg Tab PO 05/10/25 08:59 10 mg DAILY KEISHA Administration Hydrocortisone 1 appln 04/10/25 11:00 04/12/25 22:33 Hydrocortisone Hc 2.5% Crm 30gm Tube EXT 05/10/25 10:59 1 appln Q12H KEISHA Administration Insulin Aspart 0 units 04/13/25 06:00 04/13/25 06:09 Insulin Aspart Per Unit Charge SC 05/13/25 05:59 Not Given Q6 KEISHA Magnesium Oxide 400 mg 04/11/25 13:00 04/13/25 07:59 Magnesium Oxide 400 Mg Tab PO 05/11/25 12:59 400 mg QAM KEISHA Administration Methylphenidate HCl 10 mg 04/12/25 07:30 04/13/25 08:05 Methylphenidate Hcl 10 Mg Tablet PO 04/26/25 07:29 10 mg BID@0730,1130 KEISHA Administration Metoprolol Tartrate 12.5 mg 04/09/25 21:30 04/13/25 07:59 Metoprolol Tartrate 25 Mg Tab PO 05/09/25 21:29 12.5 mg BID KEISHA Administration Ondansetron HCl 4 mg 04/09/25 21:30 04/12/25 20:49 Ondansetron Inj 2 Mg/Ml 2 Ml Vial IV 05/09/25 21:29 4 mg Q6H PRN Administration Nausea Pantoprazole Sodium 40 mg 04/11/25 09:00 04/13/25 07:59 Pantoprazole 40 Mg Tab PO 05/11/25 08:59 40 mg QAM KEISHA Administration Pregabalin 300 mg 04/09/25 21:30 04/13/25 08:05 Pregabalin 150 Mg Cap PO 05/09/25 21:29 300 mg BID KEISHA Administration Prochlorperazine 5 mg 04/09/25 21:43 04/10/25 19:51 Prochlorperazine Maleate 5 Mg Tab PO 05/09/25 21:42 5 mg Q6H PRN Administration Nausea And Vomiting Rosuvastatin Calcium 10 mg 04/09/25 21:30 04/12/25 19:33 Rosuvastatin Calcium 10 Mg Tab PO 05/09/25 21:29 10 mg HS KEISHA Administration Zonisamide 25 mg 04/10/25 09:00 04/13/25 07:58 Zonisamide 25 Mg Capsule PO 05/10/25 08:59 25 mg BID KEISHA Administration Past Medical History Medical History (Updated 04/13/25 @ 10:41 by Víctor Khanna MD) Hypertension GERD (gastroesophageal reflux disease) Diabetes 1.5, managed as type 2 Elevated hematocrit E. coli gastroenteritis Idiopathic polyneuropathy Social History Smoking Status: Never smoker Hx Alcohol Use: Yes Alcohol type: wine alcohol intake frequency: holidays/special occasions only Hx Substance Use: No substance use type: does not use Physical Exam Vital Signs Last Vital Signs Temp 36.2 C L 04/13/25 11:10 Pulse 69 04/13/25 11:10 Resp 16 04/13/25 11:10 BP 134/90 04/13/25 11:10 Pulse Ox 97 04/13/25 11:10 O2 Del Method Room Air 04/13/25 11:10 Testing Laboratory Results 04/13/25 05:54 04/13/25 05:54 Hemoglobin A1c 6.3 % (4.5-5.6) H 04/10/25 06:20 Urine Color Yellow 04/09/25 17:25 Urine Appearance Clear (Clear) 04/09/25 17:25 Urine pH 6.5 (4.5-7.5) 04/09/25 17:25 Ur Specific [place] 1.039 (1.000-1.030) H 04/09/25 17:25 Urine Protein Trace (Negative) H 04/09/25 17:25 Urine Glucose (UA) 3+ (Negative) H 04/09/25 17: Urine Ketones 3+ (Negative) H 04/09/25 17:25 Urine Nitrite Negative (Negative) 04/09/25 17:25 Ur Leukocyte Esterase Negative (Negative) 04/09/25 17:25 Urine WBC (Auto) 0-5 /hpf (0-5) 04/09/25: Urine RBC (Auto) 0-2 /hpf (0-2) 04/09/25 17:25 U Hyaline Cast (Auto) 0-2 /lpf (0-2) 04/09/25 17:25 U Epithel Cells (Auto) 0-2 /hpf (0-2) 04/09/25 17:25 Urine Bacteria (Auto) None Seen (None Seen) 04/09/25 17:25 04/13/25 06:01 POC Glucose 86 Electrocardiogram Date: 04/09/25 DICTATED BY: Adalid Delacruz MD Test Reason : Blood Pressure : */* mmHG Vent. Rate : 109 BPM Atrial Rate : 109 BPM P-R Int : 142 ms QRS Dur : 80 ms QT Int : 348 ms P-R-T Axes : 70 -6 50 degrees QTcB Int : 468 ms Sinus tachycardia Possible Left atrial enlargement possible Inferior infarct (cited on or before 02-Apr-2025) Poor R wave progression, consider anterior RI vs. lead placement vs. LVH Abnormal ECG When compared with ECG of 02-Apr-2025 17:05, Nonspecific T wave abnormality now evident in Inferior leads Confirmed by Adalid Delacruz ([id number]) on 04/10/2025 10:34:07 AM Chest X-Ray Date: 04/02/25 IMPRESSION: No acute cardiopulmonary abnormalities are identified.
--- NOTE | 2025-04-13 10:50 | Hospitalist Progress Note ---
Date of Service April 13, 2025 Assessment & Plan (1) Nausea & vomiting: (2) Hematochezia: (3) Dehydration: (4) Elevated hemoglobin: (5) Diabetes 1.5, managed as type 2: (6) Hyperlipidemia associated with type 2 diabetes mellitus: (7) GERD (gastroesophageal reflux disease): (8) Depression: (9) Hypertension: Plan: Mr. Nasim Wilson is a 59-year-old male with a hx of anxiety, DM II, GERD, hypertension, neuropathy, MADY, Depression, HLD and testosterone deficiency who was admitted for eval of ongoing nausea, vomting diarrhea, as well as concern for hematochezia. Patient with recent e coli gastroenteritis. Patient doing better today at this time Nausea & vomiting Diarrhea iso recent e coli gastroenteritis stool pcr this admission negative, s/p treatment with azithromycin discontinue ciprofloxacin continue anitiemetics prn Stop IVF at 3 L encourage po intake GI following -colonoscopy in AM Hematochezia: Hematochezia likely 2/2 ongoing diarrheal illness, hematemesis likely iso powerade drink rather than blood advance diet as tolerated Serial hemoglobin determination plan for colonoscopy in AM stop PPI drip, and start po ppi in am Dehydration: #Elevated hemoglobin: hgb 19 initially but suspect dehydration, now 15; however will follow labs Diabetes 1.5, managed as type 2: Sliding scale insulin Hold Ozempic, Jardiance and metformin Hyperlipidemia associated with type 2 diabetes mellitus: continue statin on d/c GERD (gastroesophageal reflux disease): po ppi in am Depression: Restart [id number] medications when taking p.o. Hypertension: Patient is on p.o. metoprolol 12.5 mg twice daily Plan scds possible DC tomorrow if hgb stable and tolerating po Admission and Anticipated Discharge Date Admission Date: April 09, 2025 Physical Exam Physical Exam: General: Alert, oriented. No acute distress Skin: No noted rashes or bruises Psych: Appropriate mood and affect Neuro: No gross deficits HEENT: NC/AT CV: RRR Resp: Breath sounds clear bilaterally, no increased effort of breathing Abdomen: BS+. Soft, tender, distended. Extremities: No edema in lower extremities bilaterally. Results & Data Results & Data Vital Signs (Past 12 Hours) Vital Signs Temp Pulse Resp BP Pulse Ox O2 Del Method 04/13/25 07:51 36.6 C 76 21 128/82 96 Room Air
--- NOTE | 2025-04-13 12:37 | GI REPORT ---
[facility] Patient: SOFYA MADSEN : 1965 Sex at : Male Age: 59 Years Procedure: Colonoscopy Date: 04/13/2025 Attending Physician: Earle Ramon MD Referring MD: Clifford Avila MD Indications: - History of E.coli colitis. Post antibiotics. Currently negative stool studies. Ongoing abdominal pain cramping diarrhea and bleeding evaluate for inflammatory bowel disease Medications: - Monitored Anesthesia Care Complications: - No immediate complications. Estimated Blood Loss: - Estimated blood loss was minimal. Procedure: - The adult colonoscope was introduced through the anus and advanced to the terminal ileum, with identification of the appendiceal orifice and ileocecal valve. - The colonoscopy was performed without difficulty. - The quality of the bowel preparation was poor. Findings: - The perianal examination was normal. - Internal hemorrhoids were found during retroflexion. The hemorrhoids were moderate. - A moderate amount of stool was found in the entire colon, interfering with visualization. - The terminal ileum appeared normal. - Normal mucosa was found in the entire colon. Biopsies for histology were taken with a cold forceps from the ascending colon and left transverse colon for evaluation of microscopic colitis. Estimated blood loss was minimal. Impression: - Preparation of the colon was poor. - Internal hemorrhoids. - Stool in the entire examined colon. - The examined portion of the ileum was normal. - Normal mucosa in the entire examined colon. Biopsied. Recommendation: - Symptoms potentially postinfectious irritable bowel believe his bleeding noted is hemorrhoidal. Patient can probably be discharged on a probiotic. Consider an antispasmodic like Bentyl x 2 weeks. 10 mg 3 times daily as needed. Diet should be low lactose low fat. Procedure Code(s): - 70532, Colonoscopy, flexible; with biopsy, single or multiple Diagnosis Code(s): - K64.8, Other hemorrhoids CPT(R) - 2023 copyright [employer]. All Rights Reserved. The CPT codes, CCI edits and ICD codes generated are intended as suggestions and were generated based on input data. These codes are preliminary and upon gore maker review may be revised to meet current compliance and payer requirements. The provider is responsible for the final determination of appropriate codes, and modifiers. Earle Ramon MD This document has been electronically signed. Note Initiated:04/13/2025 Note Completed:04/13/2025 12:37 PM [id number]
--- NOTE | 2025-04-13 13:17 | Anesthesiology Progress Note ---
Date of Service April 13, 2025 Anesthesia Post Procedure Vital Signs Vital Signs: Temp Pulse Pulse Pulse Resp BP BP 04/13/25 13:01 67 16 133/84 04/13/25 12:50 66 16 129/83 04/13/25 12:35 74 16 125/69 04/13/25 11:10 36.2 C L 69 16 134/90 04/13/25 07:51 36.6 C 76 21 128/82 04/12/25 19:15 36.6 C 71 16 147/91 H 04/12/25 14:50 36.8 C 73 16 137/82 Pulse Ox O2 Del Method 04/13/25 13:01 96 Room Air 04/13/25 12:50 95 Room Air 04/13/25 12:35 95 Room Air 04/13/25 11:10 97 Room Air 04/13/25 07:51 96 Room Air 04/12/25 19:15 98 Room Air 04/12/25 14:50 96 Room Air Pain Intensity Abdomen: Pain Intensity: 4 Transfer of Care Handoff Completed per policy Notes Mental Status: alert / awake / arousable and participated in evaluation Patient Amnestic to Procedure: Yes Nausea / Vomiting: adequately controlled Pain: adequately controlled Airway Patency, RR, SpO2: stable & adequate BP & HR: stable & adequate Hydration State: stable & adequate Anesthetic Complications: no major complications apparent and Pt Satisfied with anesthetic care
[2025-04-13 13:18] VITALS: RESP 19
[2025-04-13] MEDS: LIDOCAINE 2% 2 ML VIAL/AMP(20MG/ML) INFIL ONE (13:26)
[2025-04-13] MEDS: PROPOFOL IV EMULSION 10 MG/ML 20 ML VIAL IV ONE ×2 (13:26)
[2025-04-13 13:53] VITALS: BP 138/91; PULSE 80; TEMP 97.7; O2SAT 95
--- NOTE | 2025-04-13 14:39 | Discharge Summary ---
Discharge Summary Date of Service April 13, 2025 Principal Dx & Hospital Course #1 = Principal Diagnosis (1) Nausea & vomiting: (2) Hematochezia: (3) Dehydration: (4) Elevated hemoglobin: (5) Diabetes 1.5, managed as type 2: (6) Hyperlipidemia associated with type 2 diabetes mellitus: (7) GERD (gastroesophageal reflux disease): (8) Depression: (9) Hypertension: Plan Mr. Nasim Wilson is a 59-year-old male with a hx of anxiety, DM II, GERD, hypertension, neuropathy, MADY, Depression, HLD and testosterone deficiency who was admitted for eval of ongoing nausea, vomting diarrhea, as well as concern for hematochezia. Patient with recent e coli gastroenteritis. Patient doing better today at this time Nausea & vomiting Diarrhea iso recent e coli gastroenteritis stool pcr this admission negative, s/p treatment with azithromycin discontinue ciprofloxacin continue anitiemetics prn Stop IVF at 3 L encourage po intake GI following -colonoscopy on 04/13/25 noting moderate internal hemorrhoids. GI recommending the following: "...Symptoms potentially postinfectious irritable bowel believe his bleeding noted is hemorrhoidal. Patient can probably be discharged on a probiotic. Consider an antispasmodic like Bentyl x 2 weeks. 10mg 3 times daily as needed. Diet should be low lactose low fat..." Dishcarged with probiotic and Bentyl as recommended above, advised to hold aspirin until pcp followup/episodic bleeding stops He will need close pcp and GI followup after discharge Hematochezia: Hemorrhoids Hematochezia likely 2/2 ongoing diarrheal illness advance diet as tolerated Serial hemoglobin determination- hgb 14.2 on dishcarge Colonoscopy as above PCP and GI followup for continued H/H monitoring and followup Info on hemorrhoids and sitz baths provided on discharge. Diabetes 1.5, managed as type 2: Sliding scale insulin Hold Ozempic, Jardiance and metformin Resume home meds on discharge Hyperlipidemia associated with type 2 diabetes mellitus: continue statin on d/c GERD (gastroesophageal reflux disease): continue home ppi Depression: continue home meds Hypertension: Patient is on p.o. metoprolol 12.5 mg twice daily Notes For Next Care Provider As above Medication Changes From Visit Per GI Probiotic and Betyl 10mg TID PRN x 2 weeks Admission HPI Per Admitting Provider Nasim Wilson is a 59-year-old male with a hx of anxiety, DM II, GERD, hypertension, neuropathy, MADY, Depression, HLD and testosterone deficiency who presented to the emergency department this evening for diarrhea. Patient was recently seen in the emergency department on 04/02/25 for diarrhea after eating a meatball sub. Stool cultures revealed an E. coli enterocolitis infection. He was started on azithromycin after his ER visit He reports his symptoms got better and he finished the antibiotics 2 days ago. He reports reoccurrence of the diarrhea 2 days ago. He also reports nausea with vomiting. He reports no fevers but does report chills. Patient reports hematochezia. He also reports blood streaking in his vomit also. Patient had multiple episodes of emesis during my evaluation despite Zofran. The vomitus is red-colored liquid form. He did just try to drink a red Powerade drink. States he has had multiple stools today all watery. There was some bright red blood. He states he has had a colonoscopy in the past that showed polyps and he is due and scheduled for colonoscopy this May. He has had an EGD in the past for GERD. Hemoglobin is slightly high at 11.99. His hemoglobin is 19. On 04/02 it was 19 as well. He is not aware of being told that he had a hemoglobin that was high in the past. He was told that he had iron deficiency in the past. Liver function testing and renal function are stable. [facility] [place]. 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 Admission Exam Per Admitting Provider General- adult male seen at bedside, he has intractable vomiting, he appears ill Head- atraumatic Eyes- PERRL, EOMI, anicteric ENT- oropharynx clear Neck- supple, no JVD, no adenopathy, no thyromegaly; carotids +2/2, no bruits appreciated Lungs- clear to auscultation and percussion Heart- regular rhythm; no murmur, no gallop, no rub appreciated Abdomen- normal bowel sounds, soft, mild, diffuse tenderness, no masses or hepatosplenomegaly Extremities- no pretibial edema, no calf tenderness; peripheral pulses intact Neuro- alert, oriented x 3; PERRL, EOMI; no facial palsy; no dysarthria; motor 5/5 bilaterally; Skin- warm & dry Discharge Exam General: Alert, oriented. No acute distress Skin: No noted rashes or bruises Psych: Appropriate mood and affect Neuro: No gross deficits HEENT: NC/AT CV: RRR Resp: Breath sounds clear bilaterally, no increased effort of breathing Abdomen: BS+. Soft, tender, distended. Extremities: No edema in lower extremities bilaterally. Updated Medication List Medication Instructions Recorded Confirmed Type bupropion HCl 150 mg 24 hr tablet, 150 mg PO QAM ##0 09/23/17 04/09/25 History extended release hydrocodone 10 mg-acetaminophen 1 tab PO BID PRN Pain, 09/23/17 04/09/25 History 325 mg tablet Moderate-Severe ##0 methocarbamol 500 mg tablet 500 mg PO HS PRN Muscle Spasm ##0 09/23/17 04/09/25 History metoprolol tartrate 25 mg tablet 12.5 mg PO BID ##0 09/23/17 04/09/25 History ascorbic acid (vitamin C) 500 mg 1,000 mg PO DAILY 04/02/25 04/09/25 History tablet aspirin 81 mg tablet,delayed 81 mg PO DAILY 04/02/25 04/09/25 History release celecoxib 200 mg capsule (Celebrex) 200 mg PO BID PRN Pain 04/02/25 04/09/25 History coenzyme Q10 100 mg tablet 0 mg PO DAILY 04/02/25 04/09/25 History cyanocobalamin (vitamin B-12) 1,000 mcg PO DAILY 04/02/25 04/09/25 History 1,000 mcg tablet duloxetine 60 mg capsule,delayed 60 mg PO DAILY 04/02/25 04/09/25 History release empagliflozin 25 mg tablet 25 mg PO DAILY 04/02/25 04/09/25 History (Jardiance) ezetimibe 10 mg tablet (Zetia) 10 mg PO DAILY 04/02/25 04/09/25 History hydroxyzine HCl 50 mg tablet 100 mg PO BID PRN anxiety/sleep 04/02/25 04/09/25 History lidocaine 5 % topical patch 1 patch topical DAILY 04/02/25 04/09/25 History lysine 1,000 mg tablet 1,000 mg PO DAILY 04/02/25 04/09/25 History metformin 500 mg tablet,extended 500 mg PO DAILY 04/02/25 04/09/25 History release 24 hr methylphenidate HCl 27 mg 27 mg PO DAILY 04/02/25 04/09/25 History tablet,extended release 24 hr (Concerta) pantoprazole 20 mg tablet,delayed 20 mg PO BID 04/02/25 04/09/25 History release (Protonix) polyethylene glycol 3350 17 17 g PO BID PRN Constipation 04/02/25 04/09/25 History gram/dose oral powder (Miralax) pregabalin 300 mg capsule (Lyrica) 300 mg PO BID 04/02/25 04/09/25 History rosuvastatin 20 mg tablet (Crestor) 10 mg PO HS 04/02/25 04/09/25 History semaglutide 0.25 mg or 0.5 mg (2 0.5 mg subcut WK 04/02/25 04/09/25 History mg/3 mL) subcutaneous pen injector (Ozempic) sildenafil 100 mg tablet (Viagra) 50 mg PO UD PRN .ED 04/02/25 04/09/25 History testosterone 3 pump topical DAILY 04/02/25 04/09/25 History urea 20 % topical cream 1 applic topical DAILY PRN 04/02/25 04/09/25 History CALLUSING/FISSURING vitamins A,C,X-vkhe-ldmesf 2,148 1 tab PO DAILY 04/02/25 04/09/25 History mcg-113 mg-45 mg-17.4 mg tablet (PreserVision AREDS) zinc gluconate 50 mg tablet 50 mg PO DAILY 04/02/25 04/09/25 History zonisamide 25 mg capsule 25 mg PO BID 04/02/25 04/09/25 History dicyclomine 20 mg tablet 20 mg PO QID #20 tabs 04/03/25 04/09/25 Rx ondansetron 4 mg disintegrating 4 mg PO Q6H PRN nausea and 04/03/25 04/09/25 Rx tablet vomiting #14 tabs sucralfate 100 mg/mL oral 10 ml PO QID #420 mL 04/03/25 04/09/25 Rx suspension (Carafate) L.acidop,casei,lactis,rham-B.lact,ursula 1 cap PO DAILY #30 caps 04/13/25 Rx 625 mg (10 billion cell) capsule (Advanced Probiotic) dicyclomine 10 mg capsule 10 mg PO TID PRN abdominal pain 04/13/25 Rx #90 caps Hospital Stay Data Consultations 04/09/25 19:56 ED Decision to Admit Stat 04/09/25 21:30 Consult Gastroenterology Routine Procedures Performed Operation Date: 04/13/25 16:30 Actual Procedures p Colonoscopy Biopsy Cytology - Earle Ramon MD Diagnostic Imagining Performed 04/09/25 16:00 CT abd pelvis IV con only Stat Abdomen/Pelvis CT 04/09/25 16:00 EXAMINATION: CT of the abdomen and pelvis performed after the administration of IV contrast TECHNIQUE: Helical CT images from the lung bases through the symphysis pubis were obtained with contrast. Coronal and sagittal reformatted images were generated at a workstation for further assessment. Dose reduction techniques were achieved by using automatic exposure control and/or adjustment of mA and/or kV according to patient size and/or use of iterative reconstruction technique. COMPARISON: April 02, 2025 HISTORY: Abdominal pain FINDINGS: Lower chest: No consolidation. No pleural effusion or pneumothorax. Liver: No suspicious liver lesions. Portal veins appear patent. Gallbladder: No gallstones. No evidence of acute cholecystitis. Spleen: Normal size. Pancreas: No suspicious pancreatic lesions. The pancreatic duct is not dilated. Adrenal glands: No adrenal nodules. Kidneys: No hydronephrosis or obstructing renal stones. Focal scarring at the mid left kidney. Bladder / Pelvic organs: Unremarkable. Bowel: No bowel obstruction. No abnormal bowel wall thickening. The appendix is unremarkable. Extensive fluid filling throughout the nondilated large bowel. Several nondilated loops of small bowel distally are fluid-filled. Lymph nodes: No retroperitoneal, mesenteric, or pelvic lymphadenopathy. Peritoneum / Retroperitoneum: No free fluid or air within the abdomen. Vessels: No infrarenal aortic aneurysm. Bones and soft tissues: No suspicious lesion in the bones. IMPRESSION: Several fluid-filled loops of small bowel, and fluid filling of the large bowel compatible with enteritis and diarrheal illness. No obstruction. Electronically signed by Adalid Lehman 04-09-2025 6:48 PM Pending Results Patient Have Any Pending Studies at Discharge: No Discharge Instructions Given to Patient (Per Discharging Provider) Nasim, You were seen by the pantry cook and had a colonoscopy done in the hospital. They noted that you had some internal hemorrhoids that was likely causing your bleeding. The pantry cook believes you might have postinfectious irritable bowel. They recommend a low lactose and low fat diet on discharge as well as a daily probiotic. They aso recommend taking the Bentyl three times a day at the 10mg dose. Your hemoglobin has remained stable and you are ready for discharge. Information on hemorrhoids and what you can do at home is included for you. Please keep close follow up with your primary care provider after discharge. Please do not hesitate to come back to the emergency room if your symptoms worsen or return. It was a pleasure taking care of you while you were here. Total Time Total Time Spent Total Time Spent (In Minutes): 60
[2025-04-13] MEDS: ADVANCED PROBIOTIC 625 MG CAPSULE PO SCH (15:46)
== END 2025-04-13 17:47 | disposition home or self-care (01) | DRG 392 ==
LOC: ED 15:32 → SUATTDRO 20:14 → 3E 20:14